=== PATIENT | female | born 1995 ===

== ENCOUNTER 2021-02-14 15:40 | Inpatient (IN) | payer OTHER ==
[2021-02-14] MEDS ORDERED: Sodium Chloride 0.9% 10 ML SDV IV PRN (16:37)
[2021-02-14] MEDS ORDERED: ceFAZolin 2 GM in Premix Bag 1 BAG IV ONE (16:37)
[2021-02-14] MEDS ORDERED: Sodium Chloride 0.9% 10 ML Syringe FLUSH PRN ×2 (16:37→19:22)
[2021-02-14] MEDS ORDERED: Citric Acid/Sodium Citrate Solution 30 ML Cup PO ONE (16:37)
[2021-02-14] MEDS ORDERED: Sodium Chloride 0.9% 2.5 ML Syringe FLUSH PRN ×2 (16:37→19:22)
[2021-02-14] MEDS ORDERED: Lactated Ringers 1,000 ML IV SCH (16:45)
[2021-02-14] MEDS ORDERED: Oxytocin/0.9 % Sodium Chloride 30 UNIT/500 ML BAG IV SCH (16:45)
--- NOTE | 2021-02-14 16:51 | PCM.LDHP ---
L&D History of Present Illness - General Date of Service: 02/14/21 Admit Problem/Dx: Patient Status Order with Admit Dx/Problem 02/14/21 15:51 Patient Status [ADT] Routine 02/14/21 16:37 Patient Status [ADT] Routine Admission Diagnosis/Problem Admission Diagnosis/Problem - History of Present Illness Introduction:: 25yo at 38w3d ANNY 02/25/2021 by 8w1d US presenting with decreased movement and recent COVID19 infection. Patient started noticing congestion and body aches that started 6 days ago. She was evaluated on 02/11/21 and was COVID19 positive. She received monoclonal antibody infusion yesterday. Reports she is still having intermittent fevers, denies headache, SOB or chest pain. The past few hours she has not felt the baby move, reports yesterday had movement. She is also having small amount of dark blood vaginally. She denies feeling contractions. She had otherwise uncomplicated . GBS negative. - Related Data Allergies/Adverse Reactions: Allergies Allergy/AdvReac Type Severity Reaction Status Date / Time No Known Allergies Allergy Verified 12/16/16 14:08 H&P Review of Systems - Review of Systems: Review Of Systems: See Below General: Reports: Fever, Chills, Malaise HEENT: Reports: No Symptoms, Sinus Congestion Pulmonary: Reports: No Symptoms Cardiovascular: Reports: No Symptoms Gastrointestinal: Reports: No Symptoms Genitourinary: Reports: Other (vaginal bleeding) Musculoskeletal: Reports: No Symptoms Skin: Reports: No Symptoms Psychiatric: Reports: No Symptoms Neurological: Reports: No Symptoms Hematologic/Lymphatic: Reports: No Symptoms Immunologic: Reports: No Symptoms L&D Exam - Exam Exam: See Below - OB Specific Contraction Frequency (min): 5-7min Contraction Intensity: Mild Movement: Not Appreciated Heart Tones: Present Heart Tones per Min: 150 Heart Rate (FHR) Variability: Minimal (0-5 bpm) (Recurrent late decels to 90-100s) Presentation: Vertex - Vital Score Vital Score Dilation: Closed - Exam General: Alert, Oriented, Cooperative HEENT: Conjunctiva Clear, Mucosa Moist & [place] Neck: Supple, Trachea Midline Lungs: Clear to Auscultation, Normal Respiratory Effort Cardiovascular: Regular Rate, Regular Rhythm, Normal S1, Normal S2 GI/Abdominal Exam: Normal Bowel Sounds, Soft, Non-Tender, No Distention Genitourinary: Normal external exam, Vaginal bleeding Back Exam: Normal Inspection, Full Range of Motion Extremities: Normal Inspection, Normal Range of Motion, Non-Tender, No Pedal Edema Skin: Warm, Dry, Intact Neurological: Cranial Nerves Intact Psychiatric: Alert, Normal Affect, Normal Mood - Patient Data Result Diagrams: 02/14/21 21:00 02/14/21 16:57 - Problem List (1) COVID-19 affecting in third trimester SNOMED Code(s): 254268387, 708014057 ICD Code: O98.513 - OTHER VIRAL DISEASES COMPLICATING , THIRD TRIMESTER; U07.1 - COVID-19 Status: Acute Current Visit: Yes (2) Abnormal heart rate complicating SNOMED Code(s): 134795183, 938540058 ICD Code: O36.8390 - MATERN CARE FOR ABNLT FETL HRT RATE OR RHYM, UNSP TRI, UNSP Status: Acute Current Visit: Yes Problem List Initiated/Reviewed/Updated: Yes Orders Last 24hrs: Active Orders 24 hr Category Date Time Status Patient Status [ADT] Routine ADT 02/14/21 16:37 Active Antiembolic Devices [RC] PER UNIT ROUTINE Care 02/14/21 16:38 Active Non Stress Test [RC] PER UNIT ROUTINE Care 02/14/21 15:51 Active Insert Urinary Catheter [OM.PC] Routine Care 02/14/21 16:37 Ordered Notify Provider Vital Signs [RC] PRN Care 02/14/21 16:38 Active Procedure Site Prep Instruct [RC] ASDIRECTED Care 02/14/21 16:37 Active Up ad Marcia [RC] ASDIRECTED Care 02/14/21 15:51 Active Urinary Catheter Assessment [RC] ASDIRECTED Care 02/14/21 16:38 Active Vaginal Exam [RC] Click to Edit Care 02/14/21 15:51 Active Verify Patient Consent Obtain [RC] ASDIRECTED Care 02/14/21 16:37 Active Vital Signs [RC] PER UNIT ROUTINE Care 02/14/21 15:51 Active CBC W/O DIFF,HEMOGRAM [HEME] Routine Lab 02/14/21 16:37 Ordered FIBRINOGEN [COAG] Stat Lab 02/14/21 16:43 Ordered INR,PT,PROTHROMBIN TIME [COAG] Stat Lab 02/14/21 16:43 Ordered PTT,PARTIAL THROMBOPLSTIN TIME [COAG] Stat Lab 02/14/21 16:43 Ordered RPR (SYPHILIS SERO) W/ RFLX [REF] Routine Lab 02/14/21 16:37 Ordered TYPE AND SCREEN [BBK] Routine Lab 02/14/21 16:37 Ordered Lactated Ringers [Ringers, Lactated] 1,000 ml Med 02/14/21 16:45 Active IV BOLUS Oxytocin/0.9 % Sodium Chloride [Oxytocin 30 Unit in NS Med 02/14/21 16:45 Active 0.9% 500 ML Premix] 30 unit in 500 ml IV TITRATE Sodium Chloride 0.9% [Normal Saline] Med 02/14/21 16:37 Active 10 ml IV ASDIRECTED PRN Sodium Chloride 0.9% [Saline Flush] Med 02/14/21 16:37 Active 10 ml FLUSH ASDIRECTED PRN Sodium Chloride 0.9% [Saline Flush] Med 02/14/21 16:37 Active 2.5 ml FLUSH ASDIRECTED PRN ceFAZolin [Ancef 2 GM/50 ML] 2 gm Med 02/14/21 16:37 Active Premix Bag 1 bag IV ONETIME Peripheral IV Insertion Adult [OM.PC] Routine Oth 02/14/21 16:37 Ordered Schedule Procedure [COMM] Per Unit Routine Oth 02/14/21 16:37 Ordered Sequential Compression Device [OM.PC] Routine Oth 02/14/21 16:37 Ordered Resuscitation Status Routine Resus Stat 02/14/21 15:51 Ordered Medication Orders Lactated Ringer's (Ringers, Lactated) 1,000 mls @ 500 mls/hr IV BOLUS ARJUN Oxytocin/Sodium Chloride (Oxytocin 30 Unit In Ns 0.9% 500 Ml Premix) 30 unit in 500 mls @ 250 mls/hr IV TITRATE ARJUN Cefazolin Sodium/Dextrose 2 gm (/ Premix) 50 mls @ 100 mls/hr IV ONETIME ONE Stop: 02/14/21 17:06 Sodium Chloride (Sodium Chloride 0.9% 10 Ml Syringe) 10 ml FLUSH ASDIRECTED PRN PRN Reason: Keep Vein Open Sodium Chloride (Sodium Chloride 0.9% 2.5 Ml Syringe) 2.5 ml FLUSH ASDIRECTED PRN PRN Reason: Keep Vein Open Sodium Chloride (Sodium Chloride 0.9% 10 Ml Sdv) 10 ml IV ASDIRECTED PRN PRN Reason: IV Use Assessment/Plan Comment:: 25yo a 38w3d with active COVID19 infection and persistent category 2 tracing. - vitals stable, Temp 97.4, BP 113/79, HR 98, RR 18, O2 Sat 100% on RA - Cat 2 tracing with minimal variability and recurrent late decels - Discussed with patient the heart tracing is concerning for poor p lacental perfusion due to COVID19 infection, since she is remote from delivery would recommend proceeding with primary urgently. - Will admit patient at this time, CBC, RPR, T&S, CMP, PT/PTT/INR - Anesthesia and OR team informed. - Thrombocytopenia with plt of 72, will proceed with general anesthesia. 2 IV placed, 2u PRBCs on hold, request platelets from outside facility.
[2021-02-14] MEDS ORDERED: Morphine PF 10 MG/10 ML SDV ONE (16:55)
[2021-02-14] MEDS ORDERED: Propofol 200 MG/20 ML SDV ONE (17:13)
[2021-02-14] MEDS ORDERED: fentaNYL 250 MCG/5 ML SDV ONE (17:14)
[2021-02-14] MEDS ORDERED: Lidocaine 2% with EPINEPHrine 1:200,000 20 ML SDV ONE (18:07)
[2021-02-14] MEDS ORDERED: Ropivacaine 0.5% 5 MG/ML 30 ML SDV ONE (18:07)
[2021-02-14] MEDS ORDERED: HYDROmorphone 2 MG/ML Syringe ONE ×2 (18:49→19:09)
--- NOTE | 2021-02-14 18:49 | PCM.SN.2 ---
- Free Text/Narrative Note: Anesthesia Start: 1839 Anesthesia Stop:1842 At request of operative surgeon, Bilateral TAPS blocks were placed follwoing a block time out at the end of the surgical procedure. Using US guidance and sterile technique, a 22g 6 inch echogenic holt needle was used to perform bilateral TAPS blocks 25 cc of a combination 2% lido with epi/0.5% Naropin was injected in 5cc increments per side. Patient tolerated the procedure well No complications. Twan Caldwell MD Time Documentation
[2021-02-14] MEDS ORDERED: Albuterol 0.083% 2.5 MG/3 ML Neb Soln NEB PRN (18:52)
[2021-02-14] MEDS ORDERED: Metoclopramide 10 MG/2 ML SDV IVPUSH PRN (18:52)
[2021-02-14] MEDS ORDERED: fentaNYL 100 MCG/2 ML SDV IVPUSH PRN (18:52)
[2021-02-14] MEDS ORDERED: Ondansetron 4 MG/2 ML SDV IVPUSH PRN ×2 (18:52→19:22)
[2021-02-14] MEDS ORDERED: Naloxone 0.4 MG/ML SDV IVPUSH PRN (18:52)
[2021-02-14] MEDS: HYDROmorphone 1 MG/ML Syringe IVPUSH PRN ×2 (19:12→19:26)
[2021-02-14] MEDS ORDERED: diphenhydrAMINE 50 MG/ML SDV IVPUSH PRN (19:22)
[2021-02-14] MEDS ORDERED: Misoprostol 200 MCG Tab RECTAL PRN (19:22)
[2021-02-14] MEDS ORDERED: Acetaminophen/oxyCODONE 325-5 MG Tab PO PRN (19:22)
[2021-02-14] MEDS ORDERED: Methylergonovine 0.2 MG/1 ML Amp IM PRN (19:22)
[2021-02-14] MEDS ORDERED: Bisacodyl 10 MG Supp RECTAL PRN (19:22)
[2021-02-14] MEDS ORDERED: Lanolin 100% Cream 7 GM Tube TOP PRN (19:22)
--- NOTE | 2021-02-14 19:45 | PCM.POSTAN ---
POST ANESTHESIA ASSESSMENT - MENTAL STATUS Mental Status: Alert, Oriented - VITAL SIGNS Vital Signs: Last Vital Signs Temp 36.1 C 02/14/21 18:40 Pulse 92 02/14/21 19:40 Resp 17 02/14/21 19:40 BP 110/65 02/14/21 19:40 Pulse Ox 100 02/14/21 19:40 - RESPIRATORY Respiratory Status: Respiratory Rate WNL, Airway Patent, O2 Saturation Stable - CARDIOVASCULAR CV Status: Pulse Rate WNL, Blood Pressure Stable - GASTROINTESTINAL GI Status: No Symptoms - PAIN Pain Score: 4 - POST OP HYDRATION Hydration Status: Adequate & Stable
--- NOTE | 2021-02-14 19:45 | PCM.PREANE ---
Preanesthetic Assessment - Anesthesia/Transfusion/Family Hx Anesthesia History: Prior Anesthesia Without Reaction Family History of Anesthesia Reaction: No Transfusion History: No Prior Transfusion(s) Additional History: Covid 19 Positive - Review of Systems General: Fever, Weakness Pulmonary: No Symptoms, Other (CTA) Cardiovascular: No Symptoms Gastrointestinal: No Symptoms Neurological: No Symptoms Other: Reports: None (thrombocytopenic ) - Physical Assessment NPO Status Date: 02/14/21 NPO Status Time: 16:00 Vital Signs: Last Vital Signs Temp 36.1 C 02/14/21 18:40 Pulse 92 02/14/21 19:40 Resp 17 02/14/21 19:40 BP 110/65 02/14/21 19:40 Pulse Ox 100 02/14/21 19:40 ASA Class: 4E Mental Status: Alert & Oriented x3 Airway Class: Mallampati = 2 Dentition: Reports: Normal Dentition Thyro-Mental Finger Breadths: 3 Mouth Opening Finger Breadths: 3 ROM/Head Extension: Full Lungs: Clear to Auscultation, Normal Respiratory Effort Cardiovascular: Regular Rate, Regular Rhythm - Lab Values: Laboratory Last Values WBC 8.15 K/uL (4.0-11.0) 02/14/21 16:57 RBC 5.18 M/uL (4.30-5.90) 02/14/21 16:57 Hgb 15.5 g/dL (12.0-16.0) 02/14/21 16:57 Hct 45.6 % (36.0-46.0) 02/14/21 16:57 MCV 88.0 fL (80.0-98.0) 02/14/21 16:57 MCH 29.9 pg (27.0-32.0) 02/14/21 16:57 MCHC 34.0 g/dL (31.0-37.0) 02/14/21 16:57 RDW Std Deviation 45.0 fl (28.0-62.0) 02/14/21 16:57 RDW Coeff of Coni 14 % (11.0-15.0) 02/14/21 16:57 Plt Count 72 K/uL (150-400) L 02/14/21 16:57 MPV 10.40 fL (7.40-12.00) 02/14/21 16:57 Nucleated RBC % 0.0 /100WBC 02/14/21 16:57 Nucleated RBCs # 0 K/uL 02/14/21 16:57 INR 1.35 02/14/21 16:57 APTT 35.2 SEC (18.6-31.3) H 02/14/21 16:57 Fibrinogen 64 mg/dL (215-411) L 02/14/21 16:57 Blood Type A POSITIVE 02/14/21 16:57 Antibody Screen NEGATIVE 02/14/21 16:57 Crossmatch See Detail 02/14/21 16:57 - Allergies Allergies/Adverse Reactions: Allergies Allergy/AdvReac Type Severity Reaction Status Date / Time No Known Allergies Allergy Verified 12/16/16 14:08 - Blood Blood Available: Yes Product(s) Available: PRBC (type and cross for 2 units) - Anesthesia Plan Pre-Op Medication Ordered: None - Acknowledgements Anesthesia Type Planned: General Anesthesia Pt an Appropriate Candidate for the Planned Anesthesia: Yes Alternatives and Risks of Anesthesia Discussed w Pt/Guardian: Yes Pt/Guardian Understands and Agrees with Anesthesia Plan: Yes PreAnesthesia Questionnaire - CURRENT (IN HOUSE) MEDS Current Meds: Current Medications Albuterol (Albuterol 0.083% 2.5 Mg/3 Ml Neb Soln) 2.5 mg NEB ONETIME PRN PRN Reason: Wheezing Bisacodyl (Bisacodyl 10 Mg Supp) 10 mg RECTAL ONETIME PRN PRN Reason: Constipation Diphenhydramine HCl (Diphenhydramine 50 Mg/Ml Sdv) 25 mg IVPUSH Q6H PRN PRN Reason: Itching or Nausea Docusate Sodium (Docusate Sodium 100 Mg Cap) 100 mg PO BID ARJUN Droperidol (Droperidol 5 Mg/2 Ml Sdv) 0.625 mg IVPUSH ONETIME PRN PRN Reason: Nausea/Vomiting Emollient Ointment (Lanolin 100% Cream 7 Gm Tube) 0 gm TOP ASDIRECTED PRN PRN Reason: Sore Nipples Fentanyl (Fentanyl 100 Mcg/2 Ml Sdv) 50 mcg IVPUSH Q5M PRN PRN Reason: Pain (mild 1-3) Hydromorphone HCl (Hydromorphone 1 Mg/Ml Syringe) 1 mg IVPUSH Q10M PRN PRN Reason: Pain (moderate 4-6) Last Admin: 10/14/21 19:26 Dose: 1 mg Documented by: Lactated Ringer's (Ringers, Lactated) 1,000 mls @ 500 mls/hr IV BOLUS [facility] Last Admin: 02/14/21 16:34 Dose: 999 mls/hr Documented by: Oxytocin/Sodium Chloride (Oxytocin 30 Unit In Ns 0.9% 500 Ml Premix) 30 unit in 500 mls @ 250 mls/hr IV TITRATE [facility] Lactated Ringer's (Ringers, Lactated) 1,000 mls @ 125 mls/hr IV ASDIRECTED [facility] Methylergonovine Maleate (Methylergonovine 0.2 Mg/1 Ml Amp) 0.2 mg IM ONETIME PRN PRN Reason: Excessive Vaginal Bleeding Metoclopramide HCl (Metoclopramide 10 Mg/2 Ml Sdv) 10 mg IVPUSH ONETIME PRN PRN Reason: Nausea/Vomiting Misoprostol (Misoprostol 200 Mcg Tab) 1,000 mcg RECTAL ONETIME PRN PRN Reason: excessive bleeding Naloxone HCl (Naloxone 0.4 Mg/Ml Sdv) 0.1 mg IVPUSH ASDIRECTED PRN PRN Reason: Respiratory Depression Ondansetron HCl (Ondansetron 4 Mg/2 Ml Sdv) 4 mg IVPUSH ONETIME PRN PRN Reason: Nausea/Vomiting Ondansetron HCl (Ondansetron 4 Mg/2 Ml Sdv) 4 mg IVPUSH Q4H PRN PRN Reason: Nausea/Vomiting Oxycodone/Acetaminophen (Acetaminophen/Oxycodone 325-5 Mg Tab) 1 tab PO Q4H PRN PRN Reason: Pain (severe 7-10) Oxycodone/Acetaminophen (Acetaminophen/Oxycodone 325-5 Mg Tab) 2 tab PO Q4H PRN PRN Reason: Pain (severe 7-10) Sodium Chloride (Sodium Chloride 0.9% 10 Ml Syringe) 10 ml FLUSH ASDIRECTED PRN PRN Reason: Keep Vein Open Sodium Chloride (Sodium Chloride 0.9% 2.5 Ml Syringe) 2.5 ml FLUSH ASDIRECTED PRN PRN Reason: Keep Vein Open Sodium Chloride (Sodium Chloride 0.9% 10 Ml Sdv) 10 ml IV ASDIRECTED PRN PRN Reason: IV Use Sodium Chloride (Sodium Chloride 0.9% 10 Ml Syringe) 10 ml FLUSH ASDIRECTED PRN PRN Reason: Keep Vein Open Sodium Chloride (Sodium Chloride 0.9% 2.5 Ml Syringe) 2.5 ml FLUSH ASDIRECTED PRN PRN Reason: Keep Vein Open Discontinued Medications Citric Acid/Sodium Citrate (Citric Acid/Sodium Citrate Solution 30 Ml Cup) 30 ml PO ONETIME ONE Stop: 02/14/21 16:38 Last Admin: 02/14/21 16:57 Dose: 30 ml Documented by: Fentanyl (Fentanyl 250 Mcg/5 Ml Sdv) Confirm Administered Dose 250 mcg .ROUTE .STK-MED ONE Stop: 02/14/21 17:15 Hydromorphone HCl (Hydromorphone 2 Mg/Ml Syringe) Confirm Administered Dose 2 mg .ROUTE .STK-MED ONE Stop: 02/14/21 18:50 Hydromorphone HCl (Hydromorphone 2 Mg/Ml Syringe) Confirm Administered Dose 2 mg .ROUTE .STK-MED ONE Stop: 02/14/21 19:10 Cefazolin Sodium/Dextrose 2 gm (/ Premix) 50 mls @ 100 mls/hr IV ONETIME ONE Stop: 02/14/21 17:06 Lidocaine/Epinephrine (Lidocaine 2% With Epinephrine 1:200,000 20 Ml Sdv) Confi rm Administered Dose 20 ml .ROUTE .STK-MED ONE Stop: 02/14/21 18:08 Morphine Sulfate (Morphine Pf 10 Mg/10 Ml Sdv) Confirm Administered Dose 10 mg .ROUTE .STK-MED ONE Stop: 02/14/21 16:56 Propofol (Propofol 200 Mg/20 Ml Sdv) Confirm Administered Dose 200 mg .ROUTE .STK-MED ONE Stop: 02/14/21 17:14 Ropivacaine (Ropivacaine 0.5% 5 Mg/Ml 30 Ml Sdv) Confirm Administered Dose 30 ml .ROUTE .STK-MED ONE Stop: 02/14/21 18:08
--- NOTE | 2021-02-14 19:46 | PCM48HPAN ---
Post Anesthesia Note - EVALUATION WITHIN 48HRS OF ANESTHETIC Vital Signs in Normal Range: Yes Patient Participated in Evaluation: Yes Respiratory Function Stable: Yes Airway Patent: Yes Cardiovascular Function Stable: Yes Hydration Status Stable: Yes Pain Control Satisfactory: Yes Nausea and Vomiting Control Satisfactory: Yes Mental Status Recovered: Yes Vital Signs: Last Vital Signs Temp 36.1 C 02/14/21 18:40 Pulse 92 02/14/21 19:40 Resp 17 02/14/21 19:40 BP 110/65 02/14/21 19:40 Pulse Ox 100 02/14/21 19:40 - COMMENTS/OBSERVATIONS Free Text/Narrative:: pain is 3/10 and surgeon to order [employer]
[2021-02-14] MEDS ORDERED: Morphine Sulfate in 0.9 % NaCl 50 MG/50 ML PCA Bag IV SCH (20:00)
[2021-02-14 20:12] LABS: BLOOD UREA NITROGEN,BUN 11 mg/dL (7.0-18.0); CARBON DIOXIDE,CO2 24.3 mmol/L (21.0-32.0); CHLORIDE,CL 102 mmol/L (98-107); GLUCOSE RANDOM 70 mg/dL (74-106); POTASSIUM,K 4.4 mmol/L (3.5-5.1); SODIUM,NA 139 mmol/L (136-145)
[2021-02-14] MEDS ORDERED: Morphine 50 MG in Sodium Chloride 0.9% 37.5 ML IV SCH (20:45)
--- NOTE | 2021-02-14 21:34 | PCM.SN.2 ---
- Free Text/Narrative Note: Uncomplicated with EBL of 750cc. Vitals normal postop. Coagulopathy with fibrogen of 64, INR 1.3 and PTT of 35. CMP with elevated AST of 131. Labs resulted postop. Given FFP, monitor bleeding and vitals closely. Trend CBC, CMP and Coag every 4 hours. Discussed case with ([facility]) who recommended transfusion of plt if less than 50. Start prophylactic lovenox 40mg daily after 24 hours. Time Documentation
[2021-02-14 21:44] LABS: BLOOD UREA NITROGEN,BUN 8 mg/dL (7.0-18.0); CARBON DIOXIDE,CO2 21.5 mmol/L (21.0-32.0); CHLORIDE,CL 106 mmol/L (98-107); GLUCOSE RANDOM 98 mg/dL (74-106); POTASSIUM,K 3.9 mmol/L (3.5-5.1); SODIUM,NA 140 mmol/L (136-145)
--- NOTE | 2021-02-14 21:46 | PCM.OPNOTE ---
- General Post-Op/Procedure Note Date of Surgery/Procedure: 02/14/21 Operative Procedure(s): Primary low transverse c-sarean section. Findings: Normal appear uterus. Female , of 6 and 9, weight pending. Meconium stained fluid. Pre Op Diagnosis: 1. Booth intrauterine at 38w3d. 2. COVID19 infection. 3. Presistent Category 2 tracing. 4. Thrombocytopenia Post-Op Diagnosis: 1. Booth intrauterine at 38w3d. 2. COVID19 infection. 3. Presistent Category 2 tracing. 4. Thrombocytopenia. 5. Coagulopathy Anesthesia Technique: General ET Tube Primary Surgeon: Jay Yoo Anesthesia Provider: Twan Caldwell Rail Filler: Nicolasa Olson Pathology: Placenta Output, Urine Amount: 200 EBL in mLs: 750 Complications: Coagulopathy with fibrinogen of 64, labs resulted postop. Given FFP. Condition: Good Free Text/Narrative:: Intake & Output 02/14/21 02/14/21 02/14/21 06:59 14:59 22:59 Intake Total 3300 Output Total 100 Balance 3200
[2021-02-14] MEDS: Docusate Sodium 100 MG Cap PO SCH (23:12)
[2021-02-15] MEDS: Lactated Ringers 1,000 ML IV SCH ×2 (01:11→22:43)
[2021-02-15 06:18] LABS: BLOOD UREA NITROGEN,BUN 6 mg/dL (7.0-18.0); CARBON DIOXIDE,CO2 25.6 mmol/L (21.0-32.0); CHLORIDE,CL 106 mmol/L (98-107); GLUCOSE RANDOM 90 mg/dL (74-106); POTASSIUM,K 3.9 mmol/L (3.5-5.1); SODIUM,NA 140 mmol/L (136-145)
--- NOTE | 2021-02-15 08:04 | PCM.PNPP ---
- General Info Date of Service: 02/15/21 Functional Status: Reports: Pain Controlled, Tolerating Diet, Other (Afebrile. Feeling less congestion. Soto in place with good UO. 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 ) - Review of Systems General: Reports: Fatigue HEENT: Reports: No Symptoms Pulmonary: Reports: No Symptoms Cardiovascular: Reports: No Symptoms Gastrointestinal: Reports: No Symptoms Genitourinary: Reports: No Symptoms Musculoskeletal: Reports: No Symptoms Skin: Reports: No Symptoms Neurological: Reports: No Symptoms Psychiatric: Reports: No Symptoms - Patient Data Vital Signs - Most Recent: Last Vital Signs Temp 36.4 C 02/15/21 05:30 Pulse 107 H 02/15/21 05:30 Resp 16 02/15/21 05:30 BP 111/70 02/15/21 05:30 Pulse Ox 98 02/15/21 05:30 Weight - Most Recent: 160 lb I&O - Last 24 Hours: Intake & Output 02/14/21 02/15/21 02/15/21 22:59 06:59 14:59 Intake Total 3300 Output Total 300 1150 Balance 3000 -1150 Lab Results - Last 24 Hours: Laboratory Results - last 24 hr 02/14/21 02/14/21 02/14/21 Range/Units 16:57 16:57 16:57 WBC 8.15 (4.0-11.0) K/uL RBC 5.18 (4.30-5.90) M/uL Hgb 15.5 (12.0-16.0) g/dL Hct 45.6 (36.0-46.0) % MCV 88.0 (80.0-98.0) fL MCH 29.9 (27.0-32.0) pg MCHC 34.0 (31.0-37.0) g/dL RDW Std Deviation 45.0 (28.0-62.0) fl RDW Coeff of Cnoi 14 (11.0-15.0) % Plt Count 72 L (150-400) K/uL MPV 10.40 (7.40-12.00) fL Add Manual Diff Neutrophils % (Manual) (48.0-80.0) % Band Neutrophils % % Lymphocytes % (Manual) (16.0-40.0) % Monocytes % (Manual) (0.0-15.0) % Nucleated RBC % 0.0 /100WBC Absolute Seg Neuts (1.4-5.7) Band Neutrophils # Lymphocytes # (Manual) (0.6-2.4) Monocytes # (Manual) (0.0-0.8) Nucleated RBCs # 0 K/uL INR 1.35 APTT 35.2 H (18.6-31.3) SEC Fibrinogen 64 L (215-411) mg/dL Cord ABG pH (7.18-7.38) Cord ABG Base Excess (-10--2) Cord VBG pH (7.25-7.45) Cord VBG Base Excess (-10--2) Sodium (136-145) mmol/L Potassium (3.5-5.1) mmol/L Chloride (98-107) mmol/L Carbon Dioxide (21.0-32.0) mmol/L BUN (7.0-18.0) mg/dL Creatinine (0.6-1.0) mg/dL Est Cr Clr Drug Dosing Estimated GFR (MDRD) ml/min Glucose (74-106) mg/dL Calcium (8.5-10.1) mg/dL Total Bilirubin (0.2-1.0) mg/dL AST (15-37) IU/L ALT (14-63) IU/L Alkaline Phosphatase (46-116) U/L Total Protein (6.4-8.2) g/dL Albumin (3.4-5.0) g/dL Globulin (2.6-4.0) g/dL Albumin/Globulin Ratio (0.9-1.6) Blood Type A POSITIVE Antibody Screen NEGATIVE Crossmatch See Detail 02/14/21 02/14/21 02/14/21 Range/Units 16:57 17:37 21:00 WBC 10.16 (4.0-11.0) K/uL RBC 3.75 L (4.30-5.90) M/uL Hgb 11.2 L (12.0-16.0) g/dL Hct 32.8 L (36.0-46.0) % MCV 87.5 (80.0-98.0) fL MCH 29.9 (27.0-32.0) pg MCHC 34.1 (31.0-37.0) g/dL RDW Std Deviation 44.3 (28.0-62.0) fl RDW Coeff of Coni 14 (11.0-15.0) % Plt Count 74 L (150-400) K/uL MPV 10.20 (7.40-12.00) fL Add Manual Diff YES Neutrophils % (Manual) 84 H (48.0-80.0) % Band Neutrophils % 3 % Lymphocytes % (Manual) 9 L (16.0-40.0) % Monocytes % (Manual) 4 (0.0-15.0) % Nucleated RBC % 0.0 /100WBC Absolute Seg Neuts 8.5 H (1.4-5.7) Band Neutrophils # 0.3 Lymphocytes # (Manual) 0.9 (0.6-2.4) Monocytes # (Manual) 0.4 (0.0-0.8) Nucleated RBCs # 0 K/uL INR APTT (18.6-31.3) SEC Fibrinogen (215-411) mg/dL Cord ABG pH 7.024 L (7.18-7.38) Cord ABG Base Excess -18 L (-10--2) Cord VBG pH 7.075 L (7.25-7.45) Cord VBG Base Excess -16 L (-10--2) Sodium 139 (136-145) mmol/L Potassium 4.4 (3.5-5.1) mmol/L Chloride 102 (98-107) mmol/L Carbon Dioxide 24.3 (21.0-32.0) mmol/L BUN 11 (7.0-18.0) mg/dL Creatinine 0.8 (0.6-1.0) mg/dL Est Cr Clr Drug Dosing TNP Estimated GFR (MDRD) > 60.0 ml/min Glucose 70 L (74-106) mg/dL Calcium 7.8 L (8.5-10.1) mg/dL Total Bilirubin 0.3 (0.2-1.0) mg/dL AST 131 H (15-37) IU/L ALT 36 (14-63) IU/L Alkaline Phosphatase 335 H (46-116) U/L Total Protein 6.1 L (6.4-8.2) g/dL Albumin 2.7 L (3.4-5.0) g/dL Globulin 3.4 (2.6-4.0) g/dL Albumin/Globulin Ratio 0.8 L (0.9-1.6) Blood Type Antibody Screen Crossmatch 02/14/21 02/14/21 02/14/21 Range/Units 21:00 21:00 21:00 WBC (4.0-11.0) K/uL RBC (4.30-5.90) M/uL Hgb (12.0-16.0) g/dL Hct (36.0-46.0) % MCV (80.0-98.0) fL MCH (27.0-32.0) pg MCHC (31.0-37.0) g/dL RDW Std Deviation (28.0-62.0) fl RDW Coeff of Coni (11.0-15.0) % Plt Count (150-400) K/uL MPV (7.40-12.00) fL Add Manual Diff Neutrophils % (Manual) (48.0-80.0) % Band Neutrophils % % Lymphocytes % (Manual) (16.0-40.0) % Monocytes % (Manual) (0.0-15.0) % Nucleated RBC % /100WBC Absolute Seg Neuts (1.4-5.7) Band Neutrophils # Lymphocytes # (Manual) (0.6-2.4) Monocytes # (Manual) (0.0-0.8) Nucleated RBCs # K/uL INR 1.26 APTT 34.7 H (18.6-31.3) SEC Fibrinogen 85 L (215-411) mg/dL Cord ABG pH (7.18-7.38) Cord ABG Base Excess (-10--2) Cord VBG pH (7.25-7.45) Cord VBG Base Excess (-10--2) Sodium 140 (136-145) mmol/L Potassium 3.9 (3.5-5.1) mmol/L Chloride 106 (98-107) mmol/L Carbon Dioxide 21.5 (21.0-32.0) mmol/L BUN 8 (7.0-18.0) mg/dL Creatinine 0.6 (0.6-1.0) mg/dL Est Cr Clr Drug Dosing 131.85 Estimated GFR (MDRD) > 60.0 ml/min Glucose 98 (74-106) mg/dL Calcium 6.5 L (8.5-10.1) mg/dL Total Bilirubin 0.2 (0.2-1.0) mg/dL AST 79 H (15-37) IU/L ALT 25 (14-63) IU/L Alkaline Phosphatase 213 H (46-116) U/L Total Protein 4.3 L (6.4-8.2) g/dL Albumin 1.9 L (3.4-5.0) g/dL Globulin 2.4 L (2.6-4.0) g/dL Albumin/Globulin Ratio 0.8 L (0.9-1.6) Blood Type Antibody Screen Crossmatch 02/15/21 02/15/21 02/15/21 Range/Units 05:29 05:29 05:29 WBC 7.76 (4.0-11.0) K/uL RBC 3.17 L (4.30-5.90) M/uL Hgb 9.5 L (12.0-16.0) g/dL Hct 27.9 L (36.0-46.0) % MCV 88.0 (80.0-98.0) fL MCH 30.0 (27.0-32.0) pg MCHC 34.1 (31.0-37.0) g/dL RDW Std Deviation 44.9 (28.0-62.0) fl RDW Coeff of Coni 14 (11.0-15.0) % Plt Count 76 L (150-400) K/uL MPV 10.00 (7.40-12.00) fL Add Manual Diff YES Neutrophils % (Manual) 51 (48.0-80.0) % Band Neutrophils % 11 % Lymphocytes % (Manual) 26 (16.0-40.0) % Monocytes % (Manual) 12 (0.0-15.0) % Nucleated RBC % 0.0 /100WBC Absolute Seg Neuts 4.0 (1.4-5.7) Band Neutrophils # 0.9 Lymphocytes # (Manual) 2.0 (0.6-2.4) Monocytes # (Manual) 0.9 H (0.0-0.8) Nucleated RBCs # 0 K/uL INR 1.06 APTT 29.6 (18.6-31.3) SEC Fibrinogen (215-411) mg/dL Cord ABG pH (7.18-7.38) Cord ABG Base Excess (-10--2) Cord VBG pH (7.25-7.45) Cord VBG Base Excess (-10--2) Sodium 140 (136-145) mmol/L Potassium 3.9 (3.5-5.1) mmol/L Chloride 106 (98-107) mmol/L Carbon Dioxide 25.6 (21.0-32.0) mmol/L BUN 6 L (7.0-18.0) mg/dL Creatinine 0.7 (0.6-1.0) mg/dL Est Cr Clr Drug Dosing 113.01 Estimated GFR (MDRD) > 60.0 ml/min Glucose 90 (74-106) mg/dL Calcium 6.6 L (8.5-10.1) mg/dL Total Bilirubin 0.2 (0.2-1.0) mg/dL AST 65 H (15-37) IU/L ALT 26 (14-63) IU/L Alkaline Phosphatase 184 H (46-116) U/L Total Protein 4.2 L (6.4-8.2) g/dL Albumin 1.8 L (3.4-5.0) g/dL Globulin 2.4 L (2.6-4.0) g/dL Albumin/Globulin Ratio 0.8 L (0.9-1.6) Blood Type Antibody Screen Crossmatch Med Orders - Current: Current Medications Albuterol (Albuterol 0.083% 2.5 Mg/3 Ml Neb Soln) 2.5 mg NEB ONETIME PRN PRN Reason: Wheezing Bisacodyl (Bisacodyl 10 Mg Supp) 10 mg RECTAL ONETIME PRN PRN Reason: Constipation Diphenhydramine HCl (Diphenhydramine 50 Mg/Ml Sdv) 25 mg IVPUSH Q6H PRN PRN Reason: Itching or Nausea Docusate Sodium (Docusate Sodium 100 Mg Cap) 100 mg PO BID ARJUN Last Admin: 02/14/21 23:12 Dose: 100 mg Documented by: Droperidol (Droperidol 5 Mg/2 Ml Sdv) 0.625 mg IVPUSH ONETIME PRN PRN Reason: Nausea/Vomiting Emollient Ointment (Lanolin 100% Cream 7 Gm Tube) 0 gm TOP ASDIRECTED PRN PRN Reason: Sore Nipples Last Admin: 02/14/21 23:12 Dose: 7 gram Documented by: Enoxaparin Sodium (Enoxaparin 40 Mg/0.4 Ml Syringe) 40 mg SUBCUT Q24H [facility] Fentanyl (Fentanyl 100 Mcg/2 Ml Sdv) 50 mcg IVPUSH Q5M PRN PRN Reason: Pain (mild 1-3) Hydromorphone HCl (Hydromorphone 1 Mg/Ml Syringe) 1 mg IVPUSH Q10M PRN PRN Reason: Pain (moderate 4-6) Last Admin: 02/14/21 19:26 Dose: 1 mg Documented by: Lactated Ringer's (Ringers, Lactated) 1,000 mls @ 500 mls/hr IV BOLUS [facility] Last Admin: 02/14/21 16:34 Dose: 999 mls/hr Documented by: Oxytocin/Sodium Chloride (Oxytocin 30 Unit In Ns 0.9% 500 Ml Premix) 30 unit in 500 mls @ 250 mls/hr IV TITRATE [facility] Lactated Ringer's (Ringers, Lactated) 1,000 mls @ 125 mls/hr IV ASDIRECTED [facility] Last Admin: 02/15/21 01:11 Dose: 125 mls/hr Documented by: Morphine Sulfate 50 mg/ Sodium (Chloride) 50 mls @ 1 mls/hr IV ASDIRECTED [facility]; Protocol Last Admin: 02/14/21 21:09 Dose: 1 mls/hr Documented by: Methylergonovine Maleate (Methylergonovine 0.2 Mg/1 Ml Amp) 0.2 mg IM ONETIME PRN PRN Reason: Excessive Vaginal Bleeding Metoclopramide HCl (Metoclopramide 10 Mg/2 Ml Sdv) 10 mg IVPUSH ONETIME PRN PRN Reason: Nausea/Vomiting Misoprostol (Misoprostol 200 Mcg Tab) 1,000 mcg RECTAL ONETIME PRN PRN Reason: excessive bleeding Naloxone HCl (Naloxone 0.4 Mg/Ml Sdv) 0.1 mg IVPUSH ASDIRECTED PRN PRN Reason: Respiratory Depression Ondansetron HCl (Ondansetron 4 Mg/2 Ml Sdv) 4 mg IVPUSH ONETIME PRN PRN Reason: Nausea/Vomiting Ondansetron HCl (Ondansetron 4 Mg/2 Ml Sdv) 4 mg IVPUSH Q4H PRN PRN Reason: Nausea/Vomiting Oxycodone/Acetaminophen (Acetaminophen/Oxycodone 325-5 Mg Tab) 1 tab PO Q4H PRN PRN Reason: Pain (severe 7-10) Oxycodone/Acetaminophen (Acetaminophen/Oxycodone 325-5 Mg Tab) 2 tab PO Q4H PRN PRN Reason: Pain (severe 7-10) Sodium Chloride (Sodium Chloride 0.9% 10 Ml Syringe) 10 ml FLUSH ASDIRECTED PRN PRN Reason: Keep Vein Open Sodium Chloride (Sodium Chloride 0.9% 2.5 Ml Syringe) 2.5 ml FLUSH ASDIRECTED PRN PRN Reason: Keep Vein Open Sodium Chloride (Sodium Chloride 0.9% 10 Ml Sdv) 10 ml IV ASDIRECTED PRN PRN Reason: IV Use Sodium Chloride (Sodium Chloride 0.9% 10 Ml Syringe) 10 ml FLUSH ASDIRECTED PRN PRN Reason: Keep Vein Open Sodium Chloride (Sodium Chloride 0.9% 2.5 Ml Syringe) 2.5 ml FLUSH ASDIRECTED PRN PRN Reason: Keep Vein Open Discontinued Medications Citric Acid/Sodium Citrate (Citric Acid/Sodium Citrate Solution 30 Ml Cup) 30 ml PO ONETIME ONE Stop: 02/14/21 16:38 Last Admin: 02/14/21 16:57 Dose: 30 ml Documented by: Fentanyl (Fentanyl 250 Mcg/5 Ml Sdv) Confirm Administered Dose 250 mcg .ROUTE .STK-MED ONE Stop: 02/14/21 17:15 Hydromorphone HCl (Hydromorphone 2 Mg/Ml Syringe) Confirm Administered Dose 2 mg .ROUTE .STK-MED ONE Stop: 02/14/21 18:50 Hydromorphone HCl (Hydromorphone 2 Mg/Ml Syringe) Confirm Administered Dose 2 mg .ROUTE .STK-MED ONE Stop: 02/14/21 19:10 Cefazolin Sodium/Dextrose 2 gm (/ Premix) 50 mls @ 100 mls/hr IV ONETIME ONE Stop: 02/14/21 17:06 Lidocaine/Epinephrine (Lidocaine 2% With Epinephrine 1:200,000 20 Ml Sdv) C onfirm Administered Dose 20 ml .ROUTE .STK-MED ONE Stop: 02/14/21 18:08 Morphine Sulfate (Morphine Pf 10 Mg/10 Ml Sdv) Confirm Administered Dose 10 mg .ROUTE .STK-MED ONE Stop: 02/14/21 16:56 Propofol (Propofol 200 Mg/20 Ml Sdv) Confirm Administered Dose 200 mg .ROUTE .STK-MED ONE Stop: 02/14/21 17:14 Ropivacaine (Ropivacaine 0.5% 5 Mg/Ml 30 Ml Sdv) Confirm Administered Dose 30 ml .ROUTE .STK-MED ONE Stop: 02/14/21 18:08 - Infant Interaction Disposition, : [place] at Bedside Infant Interaction: Holding Feeding: Attempted ; Nursed Fair/Poor Support Person: - Recovery Exam Fundal Tone: Firm Fundal Level: 2 Fingerbreadths Below Umbilicus Fundal Placement: Midline Lochia Amount: Small Lochia Color: Rubra/Red Perineum Description: Intact, Minimal Bruising/Swelling Episiotomy/Laceration: None Bladder Status: Indwelling Catheter in Place Urinary Elimination: Indwelling Catheter - Exam General: Alert, Oriented, Cooperative, No Acute Distress HEENT: Pupils Equal, Pupils Reactive, EOMI Neck: Supple, Trachea Midline, No JVD Lungs: Normal Respiratory Effort Cardiovascular: Regular Rate, Regular Rhythm, No Murmurs GI/Abdominal Exam: Soft, Non-Tender, No Distention Extremities: Normal Inspection, Normal Range of Motion, Non-Tender, No Pedal Edema Skin: Warm, Dry, Intact Wound/Incisions: No Drainage (Brusing surrounding the incision) Neurological: No New Focal Deficit Psy/Mental Status: Alert, Normal Affect, Normal Mood - Problem List & Annotations (1) COVID-19 affecting in third trimester SNOMED Code(s): 876091498, 373876413 Code(s): O98.513 - OTHER VIRAL DISEASES COMPLICATING , THIRD TRIMESTER; U07.1 - COVID-19 Status: Acute Current Visit: Yes (2) Abnormal heart rate complicating SNOMED Code(s): 808342211, 112922968 Code(s): O36.8390 - MATERN CARE FOR ABNLT FETL HRT RATE OR RHYM, UNSP TRI, UNSP Status: Acute Current Visit: Yes - Problem List Review Problem List Initiated/Reviewed/Updated: Yes - My Orders Last 24 Hours: My Active Orders 02/14/21 15:51 Vital Signs [RC] PER UNIT ROUTINE Resuscitation Status Routine 02/14/21 Dinner Clear Liquid Diet [DIET] 02/14/21 16:37 Insert Urinary Catheter [OM.PC] Routine Verify Patient Consent Obtain [RC] ASDIRECTED Sodium Chloride 0.9% [Normal Saline] 10 ml IV ASDIRECTED PRN Sodium Chloride 0.9% [Saline Flush] 10 ml FLUSH ASDIRECTED PRN Sodium Chloride 0.9% [Saline Flush] 2.5 ml FLUSH ASDIRECTED PRN Peripheral IV Insertion Adult [OM.PC] Routine Schedule Procedure [COMM] Per Unit Routine Sequential Compression Device [OM.PC] Routine 02/14/21 16:38 Antiembolic Devices [RC] PER UNIT ROUTINE Notify Provider Vital Signs [RC] PRN Urinary Catheter Assessment [RC] ASDIRECTED 02/14/21 16:45 Lactated Ringers [Ringers, Lactated] 1,000 ml IV BOLUS Oxytocin/0.9 % Sodium Chloride [Oxytocin 30 Unit in NS 0.9% 500 ML Premix] 30 unit in 500 ml IV TITRATE 02/14/21 16:57 FRESH FROZEN PLASMA [BBK] Routine RED BLOOD CELLS LP [BBK] Routine RPR (SYPHILIS SERO) W/ RFLX [REF] Routine TYPE AND SCREEN [BBK] Routine 02/14/21 17:31 Transfuse Platelets [COMM] Urgent 02/14/21 19:22 Patient Status [ADT] Routine Ambulate [RC] PER UNIT ROUTINE Communication Order [RC] PER UNIT ROUTINE Communication Order [RC] PER UNIT ROUTINE Communication Order [RC] Per Unit Routine Intake and Output [RC] Q4H May Shower [RC] ASDIRECTED Notify Provider Intake and Out [RC] ASDIRECTED Notify Provider Vital Signs [RC] ASDIRECTED RT Incentive Spirometry [RC] Q2HWA Urinary Catheter Removal [RC] PER UNIT ROUTINE Acetaminophen/oxyCODONE [Percocet 325-5 MG] 1 tab PO Q4H PRN Acetaminophen/oxyCODONE [Percocet 325-5 MG] 2 tab PO Q4H PRN Lanolin [Lansinoh HPA] See Dose Instructions TOP ASDIRECTED PRN Methylergonovine [Methergine] 0.2 mg IM ONETIME PRN Ondansetron [Zofran] 4 mg IVPUSH Q4H PRN Sodium Chloride 0.9% [Saline Flush] 10 ml FLUSH ASDIRECTED PRN Sodium Chloride 0.9% [Saline Flush] 2.5 ml FLUSH ASDIRECTED PRN bisacodyL [Dulcolax] 10 mg RECTAL ONETIME PRN diphenhydrAMINE [Benadryl] 25 mg IVPUSH Q6H PRN miSOPROStoL [Cytotec] 1,000 mcg RECTAL ONETIME PRN Abdominal Binder [OM.PC] Urgent Assess Lochia [WOMSER] Per Unit Routine Assess Uterine Involution [WOMSER] Per Unit Routine Breast Pump [WOMSER] Per Unit Routine Peripheral IV Discontinue [OM.PC] Routine Saline Lock Insert [OM.PC] Routine Sequential Compression Device [OM.PC] Per Unit Routine 02/14/21 19:23 Antiembolic Devices [RC] PER UNIT ROUTINE 02/14/21 19:30 Lactated Ringers [Ringers, Lactated] 1,000 ml IV ASDIRECTED 02/14/21 20:45 Morphine 50 mg Sodium Chloride 0.9% [Normal Saline] 37.5 ml IV ASDIRECTED 02/14/21 21:00 Docusate Sodium [Colace] 100 mg PO BID 02/14/21 22:44 Telemetry Monitoring [Cardiac Monitoring] [RC] . DIRECTED 02/15/21 17:00 Enoxaparin [Lovenox] 40 mg SUBCUT Q24H - Plan Plan:: 25yo POD1 s/p primary LTCS with active COVID19 infection and persistent category 2 tracing. Complicated by thrombocytopenia and coagulopathy that is improving. - vitals stable, afebrile, on telemetry - Hgb stable at 9.5, bleeding light, bruising around the skin incision, will monitor bleeding closely. Will start lovenox 40mg qD after 24hr postop - Thrombocytopenia with plt of 72, increased to 76 this AM - Fibrinogen increased from 64 to 85 last night, given FFP. 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 No NSAIDs due to bleeding risk Continue inpatient management.
[2021-02-15] MEDS: Docusate Sodium 100 MG Cap PO SCH ×2 (09:12→20:20)
--- NOTE | 2021-02-15 11:11 | OR ---
SURGEON: Jay Yoo MD DATE OF PROCEDURE: 02/14/2021 INDICATION FOR PROCEDURE: A 25-year-old, G1, P0, at 38 weeks and 3 days, presented with decreased movement. The patient has a recent COVID-19 infection, became symptomatic about 6 days ago with some congestion and muscle aches and fevers. She tested positive 3 days ago and received monoclonal antibody yesterday. She called to the office today reporting decreased movement, and after presenting to Labor and Delivery, the heart rate was noted to be minimal variability with recurrent late decelerations. She was having mild intermittent contractions. She reports still having intermittent fevers, but denies any shortness of breath, chest pain, or headaches. She had a small amount of vaginal bleeding. Discussed with the patient that the heart rate tracing is very concerning for poor placental perfusion, likely due to COVID-19 infection. Since she is remote from delivery, would recommend proceeding with a primary low-transverse section due to impending compromise. The patient was agreeable. She was admitted and labs were obtained which showed a thrombocytopenia with platelets of 72. She was brought to the OR urgently for primary section under general anesthesia. PREOPERATIVE DIAGNOSES: 1. Booth intrauterine at 38 weeks and 3 days. 2. COVID-19 infection. 3. Persistent category 2 tracing. 4. Thrombocytopenia. POSTOPERATIVE DIAGNOSES: 1. Booth intrauterine at 38 weeks and 3 days. 2. COVID-19 infection. 3. Persistent category 2 tracing. 4. Thrombocytopenia. 5. With the additional diagnosis of coagulopathy. PROCEDURE PERFORMED: Primary low-transverse section. PAPER INSERTER: Nicolasa Olson M.D. ANESTHESIOLOGIST: Dr. Twan Caldwell. ANESTHESIA: General anesthesia. FINDINGS: Normal-appearing uterus. Viable male . score and weight were pending. Meconium-stained amniotic fluid. ESTIMATED BLOOD LOSS: 150 mL. URINE OUTPUT: 200 mL. DESCRIPTION OF PROCEDURE: The procedure was discussed with the patient. Risks include bleeding, infection, DVTs, injury to surrounding organs including bladder, bowel, ureter. The patient expressed understanding. Consent signed. The patient was brought to the operating room. She received 2 g of Ancef and SCDs. The abdomen was prepped with chlorhexidine in sterile fashion. The Randall catheter was placed. General anesthesia was applied. Pfannenstiel incision was made with a scalpel and dissected down to fascia. The fascia was cleared of subcutaneous tissue. Fascia was incised in the midline with scalpel and extended laterally with cautery. Brady clamps were placed on the superior fascial edge. The rectus muscles were with Bhandari scissors and blunt dissection. The rectus muscles were from the inferior edge in the same fashion. The rectus muscles were in the midline. The peritoneum was identified and entered bluntly. The Kang-O retractor was placed in the peritoneal cavity. The bladder was noted to be away from the lower uterine segment. The uterus was then incised with a scalpel transversely at the lower uterine segment. It was extended laterally by blunt stretching. Meconium-stained amniotic fluid was noted. The infant's head was brought to the hysterotomy and delivered with fundal pressure. The anterior shoulder delivered without difficulty, followed by the posterior shoulder and the remainder of the body. The nose and mouth were suctioned. Baby initially did not have a tone and was not breathing. The umbilical cord was clamped and cut immediately, and the infant was brought over to the warmer for resuscitation with the furnace worker and nurses. Cord bloods were obtained. Placenta was delivered with gentle traction on the umbilical cord. The uterus was cleared of any clots using clean lap. The Allis clamps were placed on the abdominal corners and lower edges of the incision. The uterine incision was closed in 2 layers. The 1st layer with running locking using 0 Monocryl, the 2nd layer using 0-Vicryl in vertical imbricated fashion. Small areas of bleeding were cauterized. The paracolic gutters were cleared of any clots. The incision was irrigated and checked again for hemostasis. The peritoneum was brought together in the midline and reapproximated with 2-0 Vicryl in running fashion. The rectus muscles were reapproximated with a mattress stitch. The rectus muscle was carefully examined and bleeding areas cauterized. The fascia was closed using 0 Vicryl suture in running fashion. The subcutaneous tissue was irrigated, and there were multiple areas that were diffusely bleeding. Cautery was applied. The subcutaneous tissue was brought together with 2-0 plain suture in running fashion. The skin was closed with 3-0 Monocryl on a Ashok needle subcuticularly. Telfa and ABD dressing were placed over the incision. The preop labs had resulted at the end of the procedure and was significant for a coagulopathy with fibrinogen of 64 and mildly elevated AST. She was given FFP to help with clotting. The patient was awoken from anesthesia without complications. She was stable and transferred to recovery room. A TAP block was performed by Dr. Caldwell. PAT / MILI /[id number]
[2021-02-15 11:28] LABS: BLOOD UREA NITROGEN,BUN 6 mg/dL (7.0-18.0); CARBON DIOXIDE,CO2 24.1 mmol/L (21.0-32.0); CHLORIDE,CL 105 mmol/L (98-107); GLUCOSE RANDOM 90 mg/dL (74-106); POTASSIUM,K 4.1 mmol/L (3.5-5.1); SODIUM,NA 140 mmol/L (136-145)
--- NOTE | 2021-02-15 17:55 | PCM.SN.2 ---
- Free Text/Narrative Note: Patient's lochia has been minimal. She has ambulated in the room. Labs reveal an improving fibrinogen, PTT and INR. Hemoglobin is stable. Platelets up to 87,000. AST mildly elevated, ALT is normal. Blood pressure normal range. She is not coughing or febrile. O2 sats are normal. Continue to monitor closely. Repeat lab this evening and in morning. Time Documentation
[2021-02-15] MEDS: Enoxaparin 40 MG/0.4 ML Syringe ONE ×2 (20:10→20:22)
[2021-02-15] MEDS: Enoxaparin 40 MG/0.4 ML Syringe SUBCUT SCH (20:15)
[2021-02-15 22:24] LABS: BLOOD UREA NITROGEN,BUN 5 mg/dL (7.0-18.0); CARBON DIOXIDE,CO2 25.3 mmol/L (21.0-32.0); CHLORIDE,CL 107 mmol/L (98-107); GLUCOSE RANDOM 108 mg/dL (74-106); POTASSIUM,K 3.8 mmol/L (3.5-5.1); SODIUM,NA 141 mmol/L (136-145)
[2021-02-16] MEDS: Acetaminophen/oxyCODONE 325-5 MG Tab PO PRN ×6 (01:28→23:48)
[2021-02-16 06:38] LABS: BLOOD UREA NITROGEN,BUN 4 mg/dL (7.0-18.0); CARBON DIOXIDE,CO2 25.6 mmol/L (21.0-32.0); CHLORIDE,CL 108 mmol/L (98-107); GLUCOSE RANDOM 94 mg/dL (74-106); POTASSIUM,K 3.8 mmol/L (3.5-5.1); SODIUM,NA 143 mmol/L (136-145)
[2021-02-16] MEDS: Docusate Sodium 100 MG Cap PO SCH ×2 (09:18→23:48)
--- NOTE | 2021-02-16 10:27 | PCM.PNPP ---
- General Info Date of Service: 02/16/21 Functional Status: Reports: Pain Controlled, Tolerating Diet, Ambulating, Urinating - Review of Systems General: Reports: Fatigue. Denies: Fever, Weakness Pulmonary: Denies: Shortness of Breath Cardiovascular: Denies: Chest Pain, Palpitations, Lightheadedness Gastrointestinal: Reports: No Symptoms Genitourinary: Reports: No Symptoms Musculoskeletal: Reports: No Symptoms Skin: Reports: No Symptoms Neurological: Reports: No Symptoms Psychiatric: Reports: No Symptoms - General Info Date of Service: 02/16/21 - Patient Data Vital Signs - Most Recent: Last Vital Signs Temp 36.3 C 02/16/21 06:04 Pulse 87 02/16/21 06:04 Resp 18 02/16/21 06:04 BP 98/66 02/16/21 06:04 Pulse Ox 97 02/16/21 06:04 Weight - Most Recent: 72.575 kg I&O - Last 24 Hours: Intake & Output 02/15/21 02/16/21 02/16/21 22:59 06:59 14:59 Output Total 900 Balance -900 Lab Results - Last 24 Hours: Laboratory Results - last 24 hr 02/15/21 02/15/21 02/15/21 Range/Units 10:46 11:05 14:20 WBC 7.46 (4.0-11.0) K/uL RBC 3.10 L (4.30-5.90) M/uL Hgb 9.3 L (12.0-16.0) g/dL Hct 27.4 L (36.0-46.0) % MCV 88.4 (80.0-98.0) fL MCH 30.0 (27.0-32.0) pg MCHC 33.9 (31.0-37.0) g/dL RDW Std Deviation 44.7 (28.0-62.0) fl RDW Coeff of Coni 14 (11.0-15.0) % Plt Count 87 L (150-400) K/uL MPV 9.60 (7.40-12.00) fL Neut % (Auto) 69.3 (48.0-80.0) % Lymph % (Auto) 20.5 (16.0-40.0) % Rawlins % (Auto) 9.4 (0.0-15.0) % Eos % (Auto) 0.4 (0.0-7.0) % Baso % (Auto) 0.4 (0.0-1.5) % Neut # (Auto) 5.2 (1.4-5.7) K/uL Lymph # (Auto) 1.5 (0.6-2.4) K/uL Rawlins # (Auto) 0.7 (0.0-0.8) K/uL Eos # (Auto) 0.0 (0.0-0.7) K/uL Baso # (Auto) 0.0 (0.0-0.1) K/uL Add Manual Diff Neutrophils % (Manual) (48.0-80.0) % Band Neutrophils % % Lymphocytes % (Manual) (16.0-40.0) % Monocytes % (Manual) (0.0-15.0) % Nucleated RBC % 0.0 /100WBC Absolute Seg Neuts (1.4-5.7) Band Neutrophils # Lymphocytes # (Manual) (0.6-2.4) Monocytes # (Manual) (0.0-0.8) Nucleated RBCs # 0 K/uL Platelet Estimate INR APTT (18.6-31.3) SEC Fibrinogen (215-411) mg/dL Sodium 140 (136-145) mmol/L Potassium 4.1 (3.5-5.1) mmol/L Chloride 105 (98-107) mmol/L Carbon Dioxide 24.1 (21.0-32.0) mmol/L BUN 6 L (7.0-18.0) mg/dL Creatinine 0.6 (0.6-1.0) mg/dL Est Cr Clr Drug Dosing 131.85 mL/min Estimated GFR (MDRD) > 60.0 ml/min Glucose 90 (74-106) mg/dL Calcium 6.8 L (8.5-10.1) mg/dL Total Bilirubin 0.3 (0.2-1.0) mg/dL AST 72 H (15-37) IU/L ALT 30 (14-63) IU/L Alkaline Phosphatase 198 H (46-116) U/L Total Protein 4.8 L (6.4-8.2) g/dL Albumin 2.1 L (3.4-5.0) g/dL Globulin 2.7 (2.6-4.0) g/dL Albumin/Globulin Ratio 0.8 L (0.9-1.6) Ur Random Creatinine 33.3 mg/dL U Random Total Protein 9.0 (<11.9) mg/dL Protein/Creatinin Ratio 0.3 02/15/21 02/15/21 02/15/21 Range/Units 14:20 14:20 20:34 WBC 7.69 (4.0-11.0) K/uL RBC 2.90 L (4.30-5.90) M/uL Hgb 8.6 L (12.0-16.0) g/dL Hct 25.5 L (36.0-46.0) % MCV 87.9 (80.0-98.0) fL MCH 29.7 (27.0-32.0) pg MCHC 33.7 (31.0-37.0) g/dL RDW Std Deviation 44.1 (28.0-62.0) fl RDW Coeff of Coni 14 (11.0-15.0) % Plt Count 93 L (150-400) K/uL MPV 10.20 (7.40-12.00) fL Neut % (Auto) (48.0-80.0) % Lymph % (Auto) (16.0-40.0) % Rawlins % (Auto) (0.0-15.0) % Eos % (Auto) (0.0-7.0) % Baso % (Auto) (0.0-1.5) % Neut # (Auto) (1.4-5.7) K/uL Lymph # (Auto) (0.6-2.4) K/uL Rawlins # (Auto) (0.0-0.8) K/uL Eos # (Auto) (0.0-0.7) K/uL Baso # (Auto) (0.0-0.1) K/uL Add Manual Diff Neutrophils % (Manual) (48.0-80.0) % Band Neutrophils % % Lymphocytes % (Manual) (16.0-40.0) % Monocytes % (Manual) (0.0-15.0) % Nucleated RBC % 0.0 /100WBC Absolute Seg Neuts (1.4-5.7) Band Neutrophils # Lymphocytes # (Manual) (0.6-2.4) Monocytes # (Manual) (0.0-0.8) Nucleated RBCs # 0 K/uL Platelet Estimate INR 0.94 APTT 26.3 (18.6-31.3) SEC Fibrinogen 213 L (215-411) mg/dL Sodium (136-145) mmol/L Potassium (3.5-5.1) mmol/L Chloride (98-107) mmol/L Carbon Dioxide (21.0-32.0) mmol/L BUN (7.0-18.0) mg/dL Creatinine (0.6-1.0) mg/dL Est Cr Clr Drug Dosing mL/min Estimated GFR (MDRD) ml/min Glucose (74-106) mg/dL Calcium (8.5-10.1) mg/dL Total Bilirubin (0.2-1.0) mg/dL AST (15-37) IU/L ALT (14-63) IU/L Alkaline Phosphatase (46-116) U/L Total Protein (6.4-8.2) g/dL Albumin (3.4-5.0) g/dL Globulin (2.6-4.0) g/dL Albumin/Globulin Ratio (0.9-1.6) Ur Random Creatinine mg/dL U Random Total Protein (<11.9) mg/dL Protein/Creatinin Ratio 02/15/21 02/16/21 02/16/21 Range/Units 20:34 05:00 05:00 WBC 8.12 (4.0-11.0) K/uL RBC 2.65 L (4.30-5.90) M/uL Hgb 7.8 L (12.0-16.0) g/dL Hct 23.4 L (36.0-46.0) % MCV 88.3 (80.0-98.0) fL MCH 29.4 (27.0-32.0) pg MCHC 33.3 (31.0-37.0) g/dL RDW Std Deviation 44.4 (28.0-62.0) fl RDW Coeff of Cnoi 14 (11.0-15.0) % Plt Count 93 L (150-400) K/uL MPV 10.10 (7.40-12.00) fL Neut % (Auto) (48.0-80.0) % Lymph % (Auto) (16.0-40.0) % Rawlins % (Auto) (0.0-15.0) % Eos % (Auto) (0.0-7.0) % Baso % (Auto) (0.0-1.5) % Neut # (Auto) (1.4-5.7) K/uL Lymph # (Auto) (0.6-2.4) K/uL Rawlins # (Auto) (0.0-0.8) K/uL Eos # (Auto) (0.0-0.7) K/uL Baso # (Auto) (0.0-0.1) K/uL Add Manual Diff YES Neutrophils % (Manual) 72 (48.0-80.0) % Band Neutrophils % 2 % Lymphocytes % (Manual) 20 (16.0-40.0) % Monocytes % (Manual) 6 (0.0-15.0) % Nucleated RBC % 0.0 /100WBC Absolute Seg Neuts 5.8 H (1.4-5.7) Band Neutrophils # 0.2 Lymphocytes # (Manual) 1.6 (0.6-2.4) Monocytes # (Manual) 0.5 (0.0-0.8) Nucleated RBCs # 0 K/uL Platelet Estimate DECREASED INR 0.92 APTT (18.6-31.3) SEC Fibrinogen (215-411) mg/dL Sodium 141 (136-145) mmol/L Potassium 3.8 (3.5-5.1) mmol/L Chloride 107 (98-107) mmol/L Carbon Dioxide 25.3 (21.0-32.0) mmol/L BUN 5 L (7.0-18.0) mg/dL Creatinine 0.5 L (0.6-1.0) mg/dL Est Cr Clr Drug Dosing 158.22 mL/min Estimated GFR (MDRD) > 60.0 ml/min Glucose 108 H (74-106) mg/dL Calcium 6.9 L (8.5-10.1) mg/dL Total Bilirubin 0.2 (0.2-1.0) mg/dL AST 54 H (15-37) IU/L ALT 28 (14-63) IU/L Alkaline Phosphatase 166 H (46-116) U/L Total Protein 4.4 L (6.4-8.2) g/dL Albumin 1.9 L (3.4-5.0) g/dL Globulin 2.5 L (2.6-4.0) g/dL Albumin/Globulin Ratio 0.8 L (0.9-1.6) Ur Random Creatinine mg/dL U Random Total Protein (<11.9) mg/dL Protein/Creatinin Ratio 02/16/21 02/16/21 Range/Units 05:00 05:00 WBC (4.0-11.0) K/uL RBC (4.30-5.90) M/uL Hgb (12.0-16.0) g/dL Hct (36.0-46.0) % MCV (80.0-98.0) fL MCH (27.0-32.0) pg MCHC (31.0-37.0) g/dL RDW Std Deviation (28.0-62.0) fl RDW Coeff of Coni (11.0-15.0) % Plt Count (150-400) K/uL MPV (7.40-12.00) fL Neut % (Auto) (48.0-80.0) % Lymph % (Auto) (16.0-40.0) % Rawlins % (Auto) (0.0-15.0) % Eos % (Auto) (0.0-7.0) % Baso % (Auto) (0.0-1.5) % Neut # (Auto) (1.4-5.7) K/uL Lymph # (Auto) (0.6-2.4) K/uL Rawlins # (Auto) (0.0-0.8) K/uL Eos # (Auto) (0.0-0.7) K/uL Baso # (Auto) (0.0-0.1) K/uL Add Manual Diff Neutrophils % (Manual) (48.0-80.0) % Band Neutrophils % % Lymphocytes % (Manual) (16.0-40.0) % Monocytes % (Manual) (0.0-15.0) % Nucleated RBC % /100WBC Absolute Seg Neuts (1.4-5.7) Band Neutrophils # Lymphocytes # (Manual) (0.6-2.4) Monocytes # (Manual) (0.0-0.8) Nucleated RBCs # K/uL Platelet Estimate INR APTT 27.7 (18.6-31.3) SEC Fibrinogen 355 (215-411) mg/dL Sodium 143 (136-145) mmol/L Potassium 3.8 (3.5-5.1) mmol/L Chloride 108 H (98-107) mmol/L Carbon Dioxide 25.6 (21.0-32.0) mmol/L BUN 4 L (7.0-18.0) mg/dL Creatinine 0.5 L (0.6-1.0) mg/dL Est Cr Clr Drug Dosing 158.22 mL/min Estimated GFR (MDRD) > 60.0 ml/min Glucose 94 (74-106) mg/dL Calcium 6.8 L (8.5-10.1) mg/dL Total Bilirubin 0.3 (0.2-1.0) mg/dL AST 47 H (15-37) IU/L ALT 23 (14-63) IU/L Alkaline Phosphatase 147 H (46-116) U/L Total Protein 4.2 L (6.4-8.2) g/dL Albumin 1.8 L (3.4-5.0) g/dL Globulin 2.4 L (2.6-4.0) g/dL Albumin/Globulin Ratio 0.8 L (0.9-1.6) Ur Random Creatinine mg/dL U Random Total Protein (<11.9) mg/dL Protein/Creatinin Ratio Med Orders - Current: Current Medications Albuterol (Albuterol 0.083% 2.5 Mg/3 Ml Neb Soln) 2.5 mg NEB ONETIME PRN PRN Reason: Wheezing Bisacodyl (Bisacodyl 10 Mg Supp) 10 mg RECTAL ONETIME PRN PRN Reason: Constipation Diphenhydramine HCl (Diphenhydramine 50 Mg/Ml Sdv) 25 mg IVPUSH Q6H PRN PRN Reason: Itching or Nausea Docusate Sodium (Docusate Sodium 100 Mg Cap) 100 mg PO BID ARJUN Last Admin: 02/16/21 09:18 Dose: 100 mg Documented by: Droperidol (Droperidol 5 Mg/2 Ml Sdv) 0.625 mg IVPUSH ONETIME PRN PRN Reason: Nausea/Vomiting Emollient Ointment (Lanolin 100% Cream 7 Gm Tube) 0 gm TOP ASDIRECTED PRN PRN Reason: Sore Nipples Last Admin: 02/14/21 23:12 Dose: 7 gram Documented by: Enoxaparin Sodium (Enoxaparin 40 Mg/0.4 Ml Syringe) 40 mg SUBCUT Q24H [facility] Last Admin: 02/15/21 20:15 Dose: 40 mg Documented by: Fentanyl (Fentanyl 100 Mcg/2 Ml Sdv) 50 mcg IVPUSH Q5M PRN PRN Reason: Pain (mild 1-3) Hydromorphone HCl (Hydromorphone 1 Mg/Ml Syringe) 1 mg IVPUSH Q10M PRN PRN Reason: Pain (moderate 4-6) Last Admin: 02/14/21 19:26 Dose: 1 mg Documented by: Lactated Ringer's (Ringers, Lactated) 1,000 mls @ 500 mls/hr IV BOLUS [facility] Last Admin: 02/14/21 16:34 Dose: 999 mls/hr Documented by: Oxytocin/Sodium Chloride (Oxytocin 30 Unit In Ns 0.9% 500 Ml Premix) 30 unit in 500 mls @ 250 mls/hr IV TITRATE [facility] Lactated Ringer's (Ringers, Lactated) 1,000 mls @ 125 mls/hr IV ASDIRECTED [facility] Last Admin: 02/15/21 22:43 Dose: 75 mls/hr Documented by: Morphine Sulfate 50 mg/ Sodium (Chloride) 50 mls @ 1 mls/hr IV ASDIRECTED [facility]; Protocol Last Admin: 02/14/21 21:09 Dose: 1 mls/hr Documented by: Methylergonovine Maleate (Methylergonovine 0.2 Mg/1 Ml Amp) 0.2 mg IM ONETIME PRN PRN Reason: Excessive Vaginal Bleeding Metoclopramide HCl (Metoclopramide 10 Mg/2 Ml Sdv) 10 mg IVPUSH ONETIME PRN PRN Reason: Nausea/Vomiting Misoprostol (Misoprostol 200 Mcg Tab) 1,000 mcg RECTAL ONETIME PRN PRN Reason: excessive bleeding Naloxone HCl (Naloxone 0.4 Mg/Ml Sdv) 0.1 mg IVPUSH ASDIRECTED PRN PRN Reason: Respiratory Depression Ondansetron HCl (Ondansetron 4 Mg/2 Ml Sdv) 4 mg IVPUSH ONETIME PRN PRN Reason: Nausea/Vomiting Ondansetron HCl (Ondansetron 4 Mg/2 Ml Sdv) 4 mg IVPUSH Q4H PRN PRN Reason: Nausea/Vomiting Oxycodone/Acetaminophen (Acetaminophen/Oxycodone 325-5 Mg Tab) 1 tab PO Q4H PRN PRN Reason: Pain (severe 7-10) Last Admin: 02/16/21 07:07 Dose: 1 tab Documented by: Oxycodone/Acetaminophen (Acetaminophen/Oxycodone 325-5 Mg Tab) 2 tab PO Q4H PRN PRN Reason: Pain (severe 7-10) Last Admin: 02/15/21 20:19 Dose: 2 tab Documented by: Sodium Chloride (Sodium Chloride 0.9% 10 Ml Syringe) 10 ml FLUSH ASDIRECTED PRN PRN Reason: Keep Vein Open Sodium Chloride (Sodium Chloride 0.9% 2.5 Ml Syringe) 2.5 ml FLUSH ASDIRECTED PRN PRN Reason: Keep Vein Open Sodium Chloride (Sodium Chloride 0.9% 10 Ml Sdv) 10 ml IV ASDIRECTED PRN PRN Reason: IV Use Sodium Chloride (Sodium Chloride 0.9% 10 Ml Syringe) 10 ml FLUSH ASDIRECTED PRN PRN Reason: Keep Vein Open Sodium Chloride (Sodium Chloride 0.9% 2.5 Ml Syringe) 2.5 ml FLUSH ASDIRECTED PRN PRN Reason: Keep Vein Open Discontinued Medications Citric Acid/Sodium Citrate (Citric Acid/Sodium Citrate Solution 30 Ml Cup) 30 ml PO ONETIME ONE Stop: 02/14/21 16:38 Last Admin: 02/14/21 16:57 Dose: 30 ml Documented by: Enoxaparin Sodium (Enoxaparin 40 Mg/0.4 Ml Syringe) Confirm Administered Dose 40 mg .ROUTE .STK-MED ONE Stop: 02/15/21 20:02 Last Admin: 02/15/21 20:22 Dose: Not Given Documented by: Fentanyl (Fentanyl 250 Mcg/5 Ml Sdv) Confirm Administered Dose 250 mcg .ROUTE .STK-MED ONE Stop: 02/14/21 17:15 Hydromorphone HCl (Hydromorphone 2 Mg/Ml Syringe) Confirm Administered Dose 2 mg .ROUTE .STK-MED ONE Stop: 02/14/21 18:50 Hydromorphone HCl (Hydromorphone 2 Mg/Ml Syringe) Confirm Administered Dose 2 mg .ROUTE .STK-MED ONE Stop: 02/14/21 19:10 Cefazolin Sodium/Dextrose 2 gm (/ Premix) 50 mls @ 100 mls/hr IV ONETIME ONE Stop: 02/14/21 17:06 Lidocaine/Epinephrine (Lidocaine 2% With Epinephrine 1:200,000 20 Ml Sdv) Confirm Administered Dose 20 ml .ROUTE .STK-MED ONE Stop: 02/14/21 18:08 Morphine Sulfate (Morphine Pf 10 Mg/10 Ml Sdv) Confirm Administered Dose 10 mg .ROUTE .STK-MED ONE Stop: 02/14/21 16:56 Propofol (Propofol 200 Mg/20 Ml Sdv) Confirm Administered Dose 200 mg .ROUTE .STK-MED ONE Stop: 02/14/21 17:14 Ropivacaine (Ropivacaine 0.5% 5 Mg/Ml 30 Ml Sdv) Confirm Administered Dose 30 ml .ROUTE .STK-MED ONE Stop: 02/14/21 18:08 - Interaction Disposition, : at Bedside Interaction: Holding Infant Feeding: Attempted ; Nursed Fair/Poor Support Person: - Recovery Exam Fundal Tone: Firm Fundal Level: 1 Fingerbreadths Below Umbilicus Fundal Placement: Midline Lochia Amount: Scant Lochia Color: Rubra/Red Perineum Description: Intact, Minimal Bruising/Swelling Episiotomy/Laceration: None Bladder Status: Voiding Urinary Elimination: Indwelling Catheter - Exam General: Alert, Oriented Lungs: Normal Respiratory Effort Cardiovascular: Regular Rate, Regular Rhythm GI/Abdominal Exam: Normal Bowel Sounds, Soft Extremities: Pedal Edema (trace). No: Nivai's Sign Skin: Warm, Dry, Intact Wound/Incisions: No Drainage, Other (ecchymosis across incision extending into mons and labia. Stable overall. ) Neurological: No New Focal Deficit Psy/Mental Status: Alert, Normal Affect, Normal Mood - Problem List & Annotations (1) COVID-19 affecting in third trimester SNOMED Code(s): 992642043, 378728464 Code(s): O98.513 - OTHER VIRAL DISEASES COMPLICATING , THIRD TRIMESTER; U07.1 - COVID-19 Status: Acute Current Visit: Yes (2) HELLP (hemolytic anemia/elev liver enzymes/low platelets in ) SNOMED Code(s): 78959173 Code(s): O14.20 - HELLP SYNDROME (HELLP), UNSPECIFIED TRIMESTER Status: Acute Current Visit: Yes (3) Status post section SNOMED Code(s): 144964749, 154726229 Code(s): Z98.891 - HISTORY OF UTERINE SCAR FROM PREVIOUS SURGERY Status: Acute Current Visit: Yes - Problem List Review Problem List Initiated/Reviewed/Updated: Yes - Assessment Assessment:: POD 2 status post c section HELLP syndrome COVID 19 infection - Plan Plan:: Patient's labs are stabilizing so far. Fibrinogen and INR have normalized. Patient is diuresing. Platelets are increasing. LFTs are falling/normalizing. Lochia is minimal. Incision has hematoma forming/but stable overall--not progressing. Blood pressures remain normal. She denies headache or cough. Still has no sense of smell and taste is limited. Patient did receive COVID MAB last Thursday. Will continue to monitor closely. Repeat labs this evening and in the morning. Continue postoperative cares. Hemoglobin is down today--but patient is most likely not as hemoconcentrated. Advised with discotinuing iv fluids if hemoglobin remains in the 7's, would advise transfusion. Patient voices understanding.
[2021-02-16] MEDS: Enoxaparin 40 MG/0.4 ML Syringe SUBCUT SCH (17:19)
[2021-02-16 18:04] LABS: BLOOD UREA NITROGEN,BUN 3 mg/dL (7.0-18.0); CARBON DIOXIDE,CO2 26.6 mmol/L (21.0-32.0); CHLORIDE,CL 109 mmol/L (98-107); GLUCOSE RANDOM 114 mg/dL (74-106); SODIUM,NA 145 mmol/L (136-145)
--- NOTE | 2021-02-16 19:12 | PCM.SN.2 ---
- Free Text/Narrative Note: Doing well overall, labs are reassuring, Platelets over 100,000. Continue to monitor closely. VS are stable. Time Documentation
[2021-02-17] MEDS: Acetaminophen/oxyCODONE 325-5 MG Tab PO PRN ×5 (04:18→22:34)
[2021-02-17 07:11] LABS: BLOOD UREA NITROGEN,BUN 5 mg/dL (7.0-18.0); CARBON DIOXIDE,CO2 25.1 mmol/L (21.0-32.0); CHLORIDE,CL 109 mmol/L (98-107); GLUCOSE RANDOM 98 mg/dL (74-106); POTASSIUM,K 3.9 mmol/L (3.5-5.1); SODIUM,NA 144 mmol/L (136-145)
[2021-02-17] MEDS: Docusate Sodium 100 MG Cap PO SCH ×2 (09:06→20:35)
--- NOTE | 2021-02-17 11:19 | PCM.PNPP ---
- General Info Date of Service: 02/17/21 Functional Status: Reports: Pain Controlled, Tolerating Diet, Ambulating, Urinating - Review of Systems General: Reports: Weakness, Fatigue. Denies: Fever Pulmonary: Denies: Shortness of Breath Cardiovascular: Denies: Chest Pain, Palpitations, Lightheadedness Gastrointestinal: Denies: Abdominal Pain, Nausea, Vomiting Genitourinary: Denies: Flank Pain Musculoskeletal: Reports: No Symptoms Skin: Reports: No Symptoms Neurological: Reports: No Symptoms Psychiatric: Reports: No Symptoms - General Info Date of Service: 02/17/21 - Patient Data Vital Signs - Most Recent: Last Vital Signs Temp 36.4 C 02/17/21 08:00 Pulse 85 02/17/21 08:00 Resp 16 02/17/21 08:00 BP 104/65 02/17/21 08:00 Pulse Ox 98 02/17/21 08:00 Weight - Most Recent: 72.575 kg Lab Results - Last 24 Hours: Laboratory Results - last 24 hr 02/14/21 02/16/21 02/16/21 Range/Units 16:57 17:13 17:13 WBC 8.95 (4.0-11.0) K/uL RBC 3.06 L (4.30-5.90) M/uL Hgb 9.1 L (12.0-16.0) g/dL Hct 27.2 L (36.0-46.0) % MCV 88.9 (80.0-98.0) fL MCH 29.7 (27.0-32.0) pg MCHC 33.5 (31.0-37.0) g/dL RDW Std Deviation 45.1 (28.0-62.0) fl RDW Coeff of Coni 14 (11.0-15.0) % Plt Count 119 L (150-400) K/uL MPV 9.20 (7.40-12.00) fL Add Manual Diff Neutrophils % (Manual) (48.0-80.0) % Band Neutrophils % % Lymphocytes % (Manual) (16.0-40.0) % Monocytes % (Manual) (0.0-15.0) % Eosinophils % (Manual) (0.0-7.0) % Nucleated RBC % 0.0 /100WBC Absolute Seg Neuts (1.4-5.7) Band Neutrophils # Lymphocytes # (Manual) (0.6-2.4) Monocytes # (Manual) (0.0-0.8) Eosinophils # (Manual) (0.0-0.7) Nucleated RBCs # 0 K/uL Sodium 145 (136-145) mmol/L Potassium 4.0 (3.5-5.1) mmol/L Chloride 109 H (98-107) mmol/L Carbon Dioxide 26.6 (21.0-32.0) mmol/L BUN 3 L (7.0-18.0) mg/dL Creatinine 0.5 L (0.6-1.0) mg/dL Est Cr Clr Drug Dosing 158.22 mL/min Estimated GFR (MDRD) > 60.0 ml/min Glucose 114 H (74-106) mg/dL Calcium 6.9 L (8.5-10.1) mg/dL Total Bilirubin 0.2 (0.2-1.0) mg/dL AST 54 H (15-37) IU/L ALT 28 (14-63) IU/L Alkaline Phosphatase 157 H (46-116) U/L Total Protein 5.0 L (6.4-8.2) g/dL Albumin 2.0 L (3.4-5.0) g/dL Globulin 3.0 (2.6-4.0) g/dL Albumin/Globulin Ratio 0.7 L (0.9-1.6) Antibody Screen NEGATIVE Crossmatch See Detail 02/17/21 02/17/21 Range/Units 05:40 05:40 WBC 8.18 (4.0-11.0) K/uL RBC 2.61 L (4.30-5.90) M/uL Hgb 7.6 L (12.0-16.0) g/dL Hct 23.3 L (36.0-46.0) % MCV 89.3 (80.0-98.0) fL MCH 29.1 (27.0-32.0) pg MCHC 32.6 (31.0-37.0) g/dL RDW Std Deviation 44.9 (28.0-62.0) fl RDW Coeff of Coni 14 (11.0-15.0) % Plt Count 124 L (150-400) K/uL MPV 10.10 (7.40-12.00) fL Add Manual Diff YES Neutrophils % (Manual) 79 (48.0-80.0) % Band Neutrophils % 2 % Lymphocytes % (Manual) 13 L (16.0-40.0) % Monocytes % (Manual) 4 (0.0-15.0) % Eosinophils % (Manual) 2 (0.0-7.0) % Nucleated RBC % 0.0 /100WBC Absolute Seg Neuts 6.5 H (1.4-5.7) Band Neutrophils # 0.2 Lymphocytes # (Manual) 1.1 (0.6-2.4) Monocytes # (Manual) 0.3 (0.0-0.8) Eosinophils # (Manual) 0.2 (0.0-0.7) Nucleated RBCs # 0 K/uL Sodium 144 (136-145) mmol/L Potassium 3.9 (3.5-5.1) mmol/L Chloride 109 H (98-107) mmol/L Carbon Dioxide 25.1 (21.0-32.0) mmol/L BUN 5 L (7.0-18.0) mg/dL Creatinine 0.5 L (0.6-1.0) mg/dL Est Cr Clr Drug Dosing 158.22 mL/min Estimated GFR (MDRD) > 60.0 ml/min Glucose 98 (74-106) mg/dL Calcium 7.1 L (8.5-10.1) mg/dL Total Bilirubin 0.2 (0.2-1.0) mg/dL AST 35 (15-37) IU/L ALT 28 (14-63) IU/L Alkaline Phosphatase 138 H (46-116) U/L Total Protein 4.8 L (6.4-8.2) g/dL Albumin 1.9 L (3.4-5.0) g/dL Globulin 2.9 (2.6-4.0) g/dL Albumin/Globulin Ratio 0.7 L (0.9-1.6) Antibody Screen Crossmatch Med Orders - Current: Current Medications Albuterol (Albuterol 0.083% 2.5 Mg/3 Ml Neb Soln) 2.5 mg NEB ONETIME PRN PRN Reason: Wheezing Bisacodyl (Bisacodyl 10 Mg Supp) 10 mg RECTAL ONETIME PRN PRN Reason: Constipation Diphenhydramine HCl (Diphenhydramine 50 Mg/Ml Sdv) 25 mg IVPUSH Q6H PRN PRN Reason: Itching or Nausea Docusate Sodium (Docusate Sodium 100 Mg Cap) 100 mg PO BID REPLACED BY [facility] Last Admin: 02/17/21 09:06 Dose: 100 mg Documented by: Droperidol (Droperidol 5 Mg/2 Ml Sdv) 0.625 mg IVPUSH ONETIME PRN PRN Reason: Nausea/Vomiting Emollient Ointment (Lanolin 100% Cream 7 Gm Tube) 0 gm TOP ASDIRECTED PRN PRN Reason: Sore Nipples Last Admin: 02/14/21 23:12 Dose: 7 gram Documented by: Enoxaparin Sodium (Enoxaparin 40 Mg/0.4 Ml Syringe) 40 mg SUBCUT Q24H REPLACED BY [facility] Last Admin: 02/16/21 17:19 Dose: 40 mg Documented by: Fentanyl (Fentanyl 100 Mcg/2 Ml Sdv) 50 mcg IVPUSH Q5M PRN PRN Reason: Pain (mild 1-3) Hydromorphone HCl (Hydromorphone 1 Mg/Ml Syringe) 1 mg IVPUSH Q10M PRN PRN Reason: Pain (moderate 4-6) Last Admin: 02/14/21 19:26 Dose: 1 mg Documented by: Lactated Ringer's (Ringers, Lactated) 1,000 mls @ 500 mls/hr IV BOLUS REPLACED BY [facility] Last Admin: 02/14/21 16:34 Dose: 999 mls/hr Documented by: Oxytocin/Sodium Chloride (Oxytocin 30 Unit In Ns 0.9% 500 Ml Premix) 30 unit in 500 mls @ 250 mls/hr IV TITRATE REPLACED BY [facility] Morphine Sulfate 50 mg/ Sodium (Chloride) 50 mls @ 1 mls/hr IV ASDIRECTED REPLACED BY [facility]; Protocol Last Admin: 02/14/21 21:09 Dose: 1 mls/hr Documented by: Methylergonovine Maleate (Methylergonovine 0.2 Mg/1 Ml Amp) 0.2 mg IM ONETIME PRN PRN Reason: Excessive Vaginal Bleeding Metoclopramide HCl (Metoclopramide 10 Mg/2 Ml Sdv) 10 mg IVPUSH ONETIME PRN PRN Reason: Nausea/Vomiting Misoprostol (Misoprostol 200 Mcg Tab) 1,000 mcg RECTAL ONETIME PRN PRN Reason: excessive bleeding Naloxone HCl (Naloxone 0.4 Mg/Ml Sdv) 0.1 mg IVPUSH ASDIRECTED PRN PRN Reason: Respiratory Depression Ondansetron HCl (Ondansetron 4 Mg/2 Ml Sdv) 4 mg IVPUSH ONETIME PRN PRN Reason: Nausea/Vomiting Ondansetron HCl (Ondansetron 4 Mg/2 Ml Sdv) 4 mg IVPUSH Q4H PRN PRN Reason: Nausea/Vomiting Oxycodone/Acetaminophen (Acetaminophen/Oxycodone 325-5 Mg Tab) 1 tab PO Q4H PRN PRN Reason: Pain (severe 7-10) Last Admin: 02/17/21 08:15 Dose: 1 tab Documented by: Oxycodone/Acetaminophen (Acetaminophen/Oxycodone 325-5 Mg Tab) 2 tab PO Q4H PRN PRN Reason: Pain (severe 7-10) Last Admin: 02/15/21 20:19 Dose: 2 tab Documented by: Sodium Chloride (Sodium Chloride 0.9% 10 Ml Syringe) 10 ml FLUSH ASDIRECTED PRN PRN Reason: Keep Vein Open Sodium Chloride (Sodium Chloride 0.9% 2.5 Ml Syringe) 2.5 ml FLUSH ASDIRECTED PRN PRN Reason: Keep Vein Open Sodium Chloride (Sodium Chloride 0.9% 10 Ml Sdv) 10 ml IV ASDIRECTED PRN PRN Reason: IV Use Sodium Chloride (Sodium Chloride 0.9% 10 Ml Syringe) 10 ml FLUSH ASDIRECTED PRN PRN Reason: Keep Vein Open Sodium Chloride (Sodium Chloride 0.9% 2.5 Ml Syringe) 2.5 ml FLUSH ASDIRECTED PRN PRN Reason: Keep Vein Open Discontinued Medications Citric Acid/Sodium Citrate (Citric Acid/Sodium Citrate Solution 30 Ml Cup) 30 ml PO ONETIME ONE Stop: 02/14/21 16:38 Last Admin: 02/14/21 16:57 Dose: 30 ml Documented by: Enoxaparin Sodium (Enoxaparin 40 Mg/0.4 Ml Syringe) Confirm Administered Dose 40 mg .ROUTE .STK-MED ONE Stop: 02/15/21 20:02 Last Admin: 02/15/21 20:22 Dose: Not Given Documented by: Fentanyl (Fentanyl 250 Mcg/5 Ml Sdv) Confirm Administered Dose 250 mcg .ROUTE .STK-MED ONE Stop: 02/14/21 17:15 Hydromorphone HCl (Hydromorphone 2 Mg/Ml Syringe) Confirm Administered Dose 2 mg .ROUTE .STK-MED ONE Stop: 02/14/21 18:50 Hydromorphone HCl (Hydromorphone 2 Mg/Ml Syringe) Confirm Administered Dose 2 mg .ROUTE .STK-MED ONE Stop: 02/14/21 19:10 Cefazolin Sodium/Dextrose 2 gm (/ Premix) 50 mls @ 100 mls/hr IV ONETIME ONE Stop: 02/14/21 17:06 Lactated Ringer's (Ringers, Lactated) 1,000 mls @ 125 mls/hr IV ASDIRECTED ARJUN Last Infusion: 02/16/21 09:30 Dose: 0 mls/hr Documented by: Lidocaine/Epinephrine (Lidocaine 2% With Epinephrine 1:200,000 20 Ml Sdv) Confirm Administered Dose 20 ml .ROUTE .STK-MED ONE Stop: 02/14/21 18:08 Morphine Sulfate (Morphine Pf 10 Mg/10 Ml Sdv) Confirm Administered Dose 10 mg .ROUTE .STK-MED ONE Stop: 02/14/21 16:56 Propofol (Propofol 200 Mg/20 Ml Sdv) Confirm Administered Dose 200 mg .ROUTE . STK-MED ONE Stop: 02/14/21 17:14 Ropivacaine (Ropivacaine 0.5% 5 Mg/Ml 30 Ml Sdv) Confirm Administered Dose 30 ml .ROUTE .STK-MED ONE Stop: 02/14/21 18:08 - Interaction Infant Disposition, : at Bedside Infant Interaction: Holding Infant Feeding: Attempted ; Nursed Fair/Poor Support Person: - Recovery Exam Fundal Tone: Firm Fundal Level: At Umbilicus Fundal Placement: Midline Lochia Amount: Small Lochia Color: Rubra/Red Perineum Description: Intact, Minimal Bruising/Swelling Episiotomy/Laceration: None Bladder Status: Voiding Urinary Elimination: Indwelling Catheter - Exam General: Alert, Oriented Lungs: Normal Respiratory Effort Cardiovascular: Regular Rate, Regular Rhythm GI/Abdominal Exam: Normal Bowel Sounds, Soft Extremities: Pedal Edema (trace), Pallor. No: Nivia's Sign Skin: Dry, Intact, Cool, Ecchymosis (along incision and mons is stable. ) Neurological: No New Focal Deficit Psy/Mental Status: Alert, Normal Affect, Normal Mood - Problem List & Annotations (1) COVID-19 affecting in third trimester SNOMED Code(s): 984545354, 231073011 Code(s): O98.513 - OTHER VIRAL DISEASES COMPLICATING , THIRD TRIMESTER; U07.1 - COVID-19 Status: Acute Current Visit: Yes (2) HELLP (hemolytic anemia/elev liver enzymes/low platelets in ) SNOMED Code(s): 89518537 Code(s): O14.20 - HELLP SYNDROME (HELLP), UNSPECIFIED TRIMESTER Status: Acute Current Visit: Yes (3) Status post section SNOMED Code(s): 039559427, 575514618 Code(s): Z98.891 - HISTORY OF UTERINE SCAR FROM PREVIOUS SURGERY Status: Acute Current Visit: Yes - Problem List Review Problem List Initiated/Reviewed/Updated: Yes - Assessment Assessment:: POD 3 status post c section HELLP syndrome COVID 19 infection - Plan Plan:: Labs overall are stabilizing, platelets over 100,000 again. Pulse is mildly tachycardic today. Patient is very tired and pale. Hemoglobin down to 7.6. Advised 2 U PRBCs and patient is agreeable to the blood transfusion. Will reevaluate labs in the morning. Continue postoperative cares. Incisional hematoma is stable overall.
[2021-02-17] MEDS: Enoxaparin 40 MG/0.4 ML Syringe SUBCUT SCH (18:00)
[2021-02-18 06:42] LABS: BLOOD UREA NITROGEN,BUN 6 mg/dL (7.0-18.0); CARBON DIOXIDE,CO2 26.5 mmol/L (21.0-32.0); CHLORIDE,CL 108 mmol/L (98-107); GLUCOSE RANDOM 92 mg/dL (74-106); POTASSIUM,K 4.4 mmol/L (3.5-5.1); SODIUM,NA 143 mmol/L (136-145)
[2021-02-18] MEDS: Docusate Sodium 100 MG Cap PO SCH (08:40)
[2021-02-18] MEDS: Acetaminophen/oxyCODONE 325-5 MG Tab PO PRN (08:41)
--- NOTE | 2021-02-18 11:09 | PCM.PNPP ---
- General Info Date of Service: 02/18/21 Admission Dx/Problem (Free Text): Patient Status Order with Admit Dx/Problem 02/14/21 15:51 Patient Status [ADT] Routine 02/14/21 16:37 Patient Status [ADT] Routine Admission Diagnosis/Problem Admission Diagnosis/Problem Subjective Update: Denies symptoms of preeclampsia. Ambulating in room. Pain controlled. Functional Status: Reports: Pain Controlled, Tolerating Diet, Ambulating, Urinating - Review of Systems General: Reports: No Symptoms HEENT: Reports: No Symptoms Pulmonary: Reports: No Symptoms Cardiovascular: Reports: No Symptoms Gastrointestinal: Reports: No Symptoms Genitourinary: Reports: No Symptoms Musculoskeletal: Reports: No Symptoms Skin: Reports: No Symptoms Neurological: Reports: No Symptoms Psychiatric: Reports: No Symptoms - Patient Data Vital Signs - Most Recent: Last Vital Signs Temp 36.6 C 02/18/21 08:40 Pulse 75 02/18/21 08:40 Resp 15 02/18/21 08:40 BP 117/74 02/18/21 08:40 Pulse Ox 99 02/18/21 08:40 Weight - Most Recent: 72.575 kg I&O - Last 24 Hours: Intake & Output 02/17/21 02/18/21 02/18/21 22:59 06:59 14:59 Intake Total 350 Balance 350 Lab Results - Last 24 Hours: Laboratory Results - last 24 hr 02/14/21 02/18/21 02/18/21 Range/Units 16:57 05:10 05:10 WBC 8.96 (4.0-11.0) K/uL RBC 3.61 L (4.30-5.90) M/uL Hgb 10.7 L (12.0-16.0) g/dL Hct 31.7 L (36.0-46.0) % MCV 87.8 (80.0-98.0) fL MCH 29.6 (27.0-32.0) pg MCHC 33.8 (31.0-37.0) g/dL RDW Std Deviation 46.4 (28.0-62.0) fl RDW Coeff of Coni 15 (11.0-15.0) % Plt Count 170 (150-400) K/uL MPV 10.40 (7.40-12.00) fL Nucleated RBC % 0.0 /100WBC Nucleated RBCs # 0 K/uL Sodium 143 (136-145) mmol/L Potassium 4.4 (3.5-5.1) mmol/L Chloride 108 H (98-107) mmol/L Carbon Dioxide 26.5 (21.0-32.0) mmol/L BUN 6 L (7.0-18.0) mg/dL Creatinine 0.6 (0.6-1.0) mg/dL Est Cr Clr Drug Dosing 131.85 mL/min Estimated GFR (MDRD) > 60.0 ml/min Glucose 92 (74-106) mg/dL Calcium 7.5 L (8.5-10.1) mg/dL Total Bilirubin 0.4 (0.2-1.0) mg/dL AST 40 H (15-37) IU/L ALT 36 (14-63) IU/L Alkaline Phosphatase 145 H (46-116) U/L Total Protein 5.4 L (6.4-8.2) g/dL Albumin 2.1 L (3.4-5.0) g/dL Globulin 3.3 (2.6-4.0) g/dL Albumin/Globulin Ratio 0.6 L (0.9-1.6) Blood Type A POSITIVE Antibody Screen NEGATIVE Crossmatch See Detail Med Orders - Current: Current Medications Albuterol (Albuterol 0.083% 2.5 Mg/3 Ml Neb Soln) 2.5 mg NEB ONETIME PRN PRN Reason: Wheezing Bisacodyl (Bisacodyl 10 Mg Supp) 10 mg RECTAL ONETIME PRN PRN Reason: Constipation Diphenhydramine HCl (Diphenhydramine 50 Mg/Ml Sdv) 25 mg IVPUSH Q6H PRN PRN Reason: Itching or Nausea Docusate Sodium (Docusate Sodium 100 Mg Cap) 100 mg PO BID [facility]JUN Last Admin: 02/18/21 08:40 Dose: 100 mg Documented by: Droperidol (Droperidol 5 Mg/2 Ml Sdv) 0.625 mg IVPUSH ONETIME PRN PRN Reason: Nausea/Vomiting Emollient Ointment (Lanolin 100% Cream 7 Gm Tube) 0 gm TOP ASDIRECTED PRN PRN Reason: Sore Nipples Last Admin: 02/14/21 23:12 Dose: 7 gram Documented by: Enoxaparin Sodium (Enoxaparin 40 Mg/0.4 Ml Syringe) 40 mg SUBCUT Q24H [facility] Last Admin: 02/17/21 18:00 Dose: 40 mg Documented by: Fentanyl (Fentanyl 100 Mcg/2 Ml Sdv) 50 mcg IVPUSH Q5M PRN PRN Reason: Pain (mild 1-3) Hydromorphone HCl (Hydromorphone 1 Mg/Ml Syringe) 1 mg IVPUSH Q10M PRN PRN Reason: Pain (moderate 4-6) Last Admin: 02/14/21 19:26 Dose: 1 mg Documented by: Lactated Ringer's (Ringers, Lactated) 1,000 mls @ 500 mls/hr IV BOLUS [facility] Last Admin: 02/14/21 16:34 Dose: 999 mls/hr Documented by: Oxytocin/Sodium Chloride (Oxytocin 30 Unit In Ns 0.9% 500 Ml Premix) 30 unit in 500 mls @ 250 mls/hr IV TITRATE [facility] Morphine Sulfate 50 mg/ Sodium (Chloride) 50 mls @ 1 mls/hr IV ASDIRECTED [facility]; Protocol Last Admin: 02/14/21 21:09 Dose: 1 mls/hr Documented by: Methylergonovine Maleate (Methylergonovine 0.2 Mg/1 Ml Amp) 0.2 mg IM ONETIME PRN PRN Reason: Excessive Vaginal Bleeding Metoclopramide HCl (Metoclopramide 10 Mg/2 Ml Sdv) 10 mg IVPUSH ONETIME PRN PRN Reason: Nausea/Vomiting Misoprostol (Misoprostol 200 Mcg Tab) 1,000 mcg RECTAL ONETIME PRN PRN Reason: excessive bleeding Naloxone HCl (Naloxone 0.4 Mg/Ml Sdv) 0.1 mg IVPUSH ASDIRECTED PRN PRN Reason: Respiratory Depression Ondansetron HCl (Ondansetron 4 Mg/2 Ml Sdv) 4 mg IVPUSH ONETIME PRN PRN Reason: Nausea/Vomiting Ondansetron HCl (Ondansetron 4 Mg/2 Ml Sdv) 4 mg IVPUSH Q4H PRN PRN Reason: Nausea/Vomiting Oxycodone/Acetaminophen (Acetaminophen/Oxycodone 325-5 Mg Tab) 1 tab PO Q4H PRN PRN Reason: Pain (severe 7-10) Last Admin: 02/18/21 08:41 Dose: 1 tab Documented by: Oxycodone/Acetaminophen (Acetaminophen/Oxycodone 325-5 Mg Tab) 2 tab PO Q4H PRN PRN Reason: Pain (severe 7-10) Last Admin: 02/15/21 20:19 Dose: 2 tab Documented by: Sodium Chloride (Sodium Chloride 0.9% 10 Ml Syringe) 10 ml FLUSH ASDIRECTED PRN PRN Reason: Keep Vein Open Sodium Chloride (Sodium Chloride 0.9% 2.5 Ml Syringe) 2.5 ml FLUSH ASDIRECTED PRN PRN Reason: Keep Vein Open Sodium Chloride (Sodium Chloride 0.9% 10 Ml Sdv) 10 ml IV ASDIRECTED PRN PRN Reason: IV Use Sodium Chloride (Sodium Chloride 0.9% 10 Ml Syringe) 10 ml FLUSH ASDIRECTED PRN PRN Reason: Keep Vein Open Sodium Chloride (Sodium Chloride 0.9% 2.5 Ml Syringe) 2.5 ml FLUSH ASDIRECTED PRN PRN Reason: Keep Vein Open Discontinued Medications Citric Acid/Sodium Citrate (Citric Acid/Sodium Citrate Solution 30 Ml Cup) 30 ml PO ONETIME ONE Stop: 02/14/21 16:38 Last Admin: 02/14/21 16:57 Dose: 30 ml Documented by: Enoxaparin Sodium (Enoxaparin 40 Mg/0.4 Ml Syringe) Confirm Administered Dose 40 mg .ROUTE .STK-MED ONE Stop: 02/15/21 20:02 Last Admin: 02/15/21 20:22 Dose: Not Given Documented by: Fentanyl (Fentanyl 250 Mcg/5 Ml Sdv) Confirm Administered Dose 250 mcg .ROUTE .STK-MED ONE Stop: 02/14/21 17:15 Hydromorphone HCl (Hydromorphone 2 Mg/Ml Syringe) Confirm Administered Dose 2 mg .ROUTE .STK-MED ONE Stop: 02/14/21 18:50 Hydromorphone HCl (Hydromorphone 2 Mg/Ml Syringe) Confirm Administered Dose 2 mg .ROUTE .STK-MED ONE Stop: 02/14/21 19:10 Cefazolin Sodium/Dextrose 2 gm (/ Premix) 50 mls @ 100 mls/hr IV ONETIME ONE Stop: 02/14/21 17:06 Lactated Ringer's (Ringers, Lactated) 1,000 mls @ 125 mls/hr IV ASDIRECTED [facility]JUN Last Infusion: 02/16/21 09:30 Dose: 0 mls/hr Documented by: Lidocaine/Epinephrine (Lidocaine 2% With Epinephrine 1:200,000 20 Ml Sdv) Confirm Administered Dose 20 ml .ROUTE .STK-MED ONE Stop: 02/14/21 18:08 Morphine Sulfate (Morphine Pf 10 Mg/10 Ml Sdv) Confirm Administered Dose 10 mg .ROUTE .STK-MED ONE Stop: 02/14/21 16:56 Propofol (Propofol 200 Mg/20 Ml Sdv) Confirm Administered Dose 200 mg .ROUTE .STK-MED ONE Stop: 02/14/21 17:14 Ropivacaine (Ropivacaine 0.5% 5 Mg/Ml 30 Ml Sdv) Confirm Administered Dose 30 ml .ROUTE .STK-MED ONE Stop: 02/14/21 18:08 - Infant Interaction Infant Disposition, : at Bedside Infant Interaction: Holding Infant Infant Feeding: Breastfed ; Nursed Well Support Person: - Recovery Exam Fundal Tone: Firm Fundal Level: 2 Fingerbreadths Below Umbilicus Fundal Placement: Midline Lochia Amount: Scant Lochia Color: Rubra/Red Bladder Status: Voiding Urinary Elimination: Voided - Exam General: Alert, Oriented Neck: Supple Lungs: Normal Respiratory Effort GI/Abdominal Exam: Soft, Non-Tender, No Distention Extremities: Non-Tender, No Pedal Edema Skin: Warm, Dry, Intact Wound/Incisions: Healing Well Neurological: No New Focal Deficit Psy/Mental Status: Alert, Normal Affect, Normal Mood - Problem List & Annotations (1) COVID-19 affecting in third trimester SNOMED Code(s): 967755511, 541889801 Code(s): O98.513 - OTHER VIRAL DISEASES COMPLICATING , THIRD TRIMESTER; U07.1 - COVID-19 Status: Acute Current Visit: Yes (2) HELLP (hemolytic anemia/elev liver enzymes/low platelets in ) SNOMED Code(s): 48354830 Code(s): O14.20 - HELLP SYNDROME (HELLP), UNSPECIFIED TRIMESTER Status: Acute Current Visit: Yes (3) Status post section SNOMED Code(s): 610969460, 400753331 Code(s): Z98.891 - HISTORY OF UTERINE SCAR FROM PREVIOUS SURGERY Status: Acute Current Visit: Yes - Problem List Review Problem List Initiated/Reviewed/Updated: Yes - My Orders Last 24 Hours: My Active Orders 02/18/21 10:57 Ready for Discharge [RC] PER UNIT ROUTINE - Assessment Assessment:: POD 4 status post c section HELLP syndrome COVID 19 infection - Plan Plan:: Labs continue to improve, patient feeling well after blood transfusion. Plan to discharge home today. Reviewed discharge instructions/precautions. All questions answered. Continue Lovenox 6 weeks .
== END 2021-02-18 14:35 | disposition home or self-care (01) | DRG 786 ==
LOC: MW.OBCHECK 15:40 → MW.OB 16:37
PROVIDERS: ADMIT Obstetrics & Gynecology; ATTEND Obstetrics & Gynecology
PROC: 10D00Z1 Extraction of Products of Conception, Low, Open Approach (ICD-10-PCS; principal; 2021-02-14)
PROC: 30233K1 Transfusion of Nonautologous Frozen Plasma into Peripheral Vein, Percutaneous Approach (ICD-10-PCS; 2021-02-14)
PROC: 30233N1 Transfusion of Nonautologous Red Blood Cells into Peripheral Vein, Percutaneous Approach (ICD-10-PCS; 2021-02-17)
DX: O36.8190 Decreased fetal movements, unspecified trimester, not applicable or unspecified (principal); U07.1 COVID-19; O98.52 Other viral diseases complicating childbirth; O99.12 Other diseases of the blood and blood-forming organs and certain disorders involving the immune mechanism complicating childbirth; D68.9 Coagulation defect, unspecified; Z37.0 Single live birth; O14.24 HELLP syndrome, complicating childbirth; D69.6 Thrombocytopenia, unspecified; Z3A.38 38 weeks gestation of pregnancy; O77.0 Labor and delivery complicated by meconium in amniotic fluid
CPT/HCPCS: 01961; 36415; 36430; 51702; 59025; 64488; 80053; 82570; 82803; 84156; 85025; 85027; 85384; 85610; 85730; 86592; 86850; 86900; 86901; 86920; 86921; 86922; 88307; A9270-GY; J1170; J1650; J2270; J2704; J2795; J3010; J7120; P9016; P9017